=== PATIENT | male | born 1930 | race African-American/Black ===

== ENCOUNTER 2019-01-30 12:06 | Inpatient (IN) ==
[2019-01-30] MEDS ORDERED: NARCAN IV ONE (12:25)
--- NOTE | 2019-01-30 12:35 | PROVIDER DOCUMENTATION ---
This chart was entered by Zenia Smith Scribe, acting as scribe for Carlos Aguero CRNP. HPI-General Adult - General Stated Complaint: AMS Time Seen by Provider: 01/30/19 12:12 Source: family, EMS Allergies/Adverse Reactions: Patient Allergies Allergy/AdvReac Type Severity Reaction Status Date / Time No Known Allergies Allergy Verified 02/06/18 21:04 Home Medications: Home Medication List Medication Instructions Recorded Confirmed Last Taken Type Amlodipine [Norvasc] 5 mg PO DAILY 08/30/12 02/06/18 03/05/17 07:14 History Folic Acid 1 mg PO DAILY 08/30/12 02/06/18 03/05/17 07:14 History Memantine HCl [Namenda] 10 mg PO BID 08/30/12 02/06/18 03/04/17 21:00 History Quetiapine [Seroquel] 25 mg PO DAILY 08/30/12 02/06/18 03/05/17 07:14 History Aspirin EC 81 mg PO DAILY #0 tablet 09/20/14 02/06/18 02/23/17 09:00 Rx Clopidogrel Bisulfate [Plavix] 75 mg PO DAILY 02/02/15 02/06/18 02/23/17 09:00 History Cyanocobalamin [Vitamin B-12] 500 microgm PO DAILY 03/03/17 02/06/18 03/05/17 07:14 History Atorvastatin Calcium [Lipitor] 20 mg PO QHS 02/06/18 02/06/18 Unknown History Donepezil HCl 10 mg PO BID 02/06/18 02/06/18 Unknown History Glucosamine/D3/Boswellia Robina 1 each PO DAILY 02/06/18 02/06/18 Unknown History [Osteo Bi-Flex Tablet] Hydralazine [Apresoline] 75 mg PO Q6H 02/06/18 02/06/18 Unknown History LISINOpril [Prinivil] 20 mg PO DAILY 02/06/18 02/06/18 Unknown History Metoprolol Succinate E.r. [Toprol 25 mg PO DAILY 02/06/18 02/06/18 Unknown History Xl] Pantoprazole Sodium 40 mg PO DAILY@0700 02/06/18 02/06/18 Unknown History Levofloxacin [Levaquin] 500 mg PO DAILY #5 tab 02/11/18 Unknown Rx - History of Present Illness -Gen Adult Nature of Presenting Problems: 88 y/o male presents to ED unable to speak onset just prior to arrival. Family of pt reports he was A&Ox3 this morning and talking to them. Pt has hx CVA, Alzheimer's, and cardiac issues. EMS states he was unresponsive en route to ED. Pt is alert, but answers questions inappropriately and does not follow commands. Location of Pain/Injury: reports: none Pain Radiation: reports: no radiation Quality of Pain: reports: none Severity: reports: moderate Onset/Duration: reports: just prior to arrival Timing: reports: still present Context/Activities at Onset: reports: none Modifying Factors: improves with: nothing Associated Symptoms: reports: other (AMS; unable to speak) Similar Symptoms Previously?: No Recently seen or treated by another doctor?: No Review of Systems - Adult - REVIEW OF SYSTEMS - ADULT Constitutional: reports: other (AMS; unable to speak). denies: chills, fever Eyes: reports: no symptoms reported Ears, Nose, Mouth & Throat: reports: no symptoms reported Cardiovascular: denies: chest pain, palpitations Respiratory: denies: cough, shortness of breath Gastrointestinal: denies: abdominal pain, diarrhea, nausea, vomiting Genitourinary: reports: no symptoms reported Musculoskeletal: denies: back pain, joint pain Integumentary: reports: no symptoms reported Neurological: reports: other (AMS; unable to speak). denies: dizziness/vertigo, seizure Psychiatric: reports: no symptoms reported Endocrine: reports: no symptoms reported Hematologic/Lymphatic: reports: no symptoms reported Allergic/Immunologic: reports: no symptoms reported All Other Systems: Reviewed and Negative Past History - Adult - PAST MEDICAL HISTORY-ADULT Review of Records: reports: Old Records Reviewed, Nursing Assessment Review, Medications Reviewed Major Childhood Illnesses: reports: history unknown Cardiovascular: reports: CAD, HTN, hyperlipidemia, [place] Respiratory: reports: denies history Gastrointestinal: reports: denies history Obstetrical/Gynecological: reports: denies history Genitourinary: reports: cancer (bladder), other (renal cyst) Musculoskeletal: reports: denies history 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, CVA, dementia, other (Coon's palsy) Endocrine/Immune: reports: denies history Other Conditions: reports: denies history - PRIOR SURGERIES/PROCEDURES Surgical/Procedure History: reports: CABG (6 years ago), other (bladder) - IMMUNIZATION STATUS Childhood Immunizations: See Nurse Assessment Flu Vaccine: See Nurse Assessment - FAMILY HISTORY Family History: reviewed, not pertinent - SOCIAL HISTORY Smoking: quit greater than 1 year Substance Use: none/never Alcohol Use Frequency: never Living Situation: family Physical Exam-General - PHYSICAL EXAM-ADULT Initial Vital Signs Reviewed: Yes - CONSTITUTIONAL General Appearance: appears well, alert, other (altered; answers questions inappropriately; unable to follow commands; uncooperative) - EYES Eyes: PERRL/EOMI, pink conjunctivae, other (pinpoint pupils) - HEAD, EARS, NOSE, MOUTH & THROAT HENMT: normocephalic/atraumatic, moist mucous membranes, other (L periorbital swelling) - NECK Neck: non-tender, full range of motion - RESPIRATORY Respiratory: chest non-tender, lungs clear, normal breath sounds - CARDIOVASCULAR Cardiovascular: normal peripheral pulses, regular rate, rhythm - GASTROINTESTINAL (ABDOMEN) Abdominal Exam: normal bowel sounds, non tender, soft - MUSCULOSKELETAL Back Exam: normal inspection, no CVA tenderness, no vertebral tenderness Extremity: normal range of motion, non-tender, swelling (L hand) - SKIN Integumentary: normal color, warm/dry, swelling (L hand; L periorbital region) - NEUROLOGIC Neurologic: other (altered; answers questions inappropriately; unable to follow commands; uncooperative) - PSYCHIATRIC Psych/Mental Status: other (altered; answers questions inappropriately; unable to follow commands; uncooperative) Progress - PLAN OF CARE/RESULTS Progress/Plan/Lab Results: Orders Category Date Time Status FSBS [Finger Stick Blood Sugar (ED)] DIRECTED Care 01/30/19 12:19 Active Saline Loc NOW Care 01/30/19 12:19 Active CHEST-PORTABLE [RAD] Stat Exams 01/30/19 12:[address] HEAD W/O CONTRAST [CT] Stat Exams 01/30/19 12:20 Ordered BLOOD CULTURE [BLDCUL] Stat Lab 01/30/19 12:21 Uncollected CBC WITH ELECTRONIC DIFF [HEME] Stat Lab 01/30/19 12:19 Uncollected CK PROFILE [SP CHEM] Stat Lab 01/30/19 12:19 Uncollected COMPREHENSIVE METABOLIC PANEL [CHEM] Stat Lab 01/30/19 12:19 Uncollected LACTATE, PLASMA [CHEM] Stat Lab 01/30/19 12:21 Uncollected PRO B-NATRIURETIC PEPTIDE Stat Lab 01/30/19 12:19 Ordered PROTIME WITH INR [COAG] Stat Lab 01/30/19 12:19 Uncollected PTT [COAG] Stat Lab 01/30/19 12:19 Uncollected TROPONIN T Stat Lab 01/30/19 12:19 Uncollected URINALYSIS W/POSS RFLX CULT [URINALYSIS] Stat Lab 01/30/19 12:20 Uncollected URINE DRUG SCREEN Stat Lab 01/30/19 12:20 Uncollected Naloxone [Narcan] Med 01/30/19 12:25 Once 0.4 mg IV NOW ONE EKG [EKG] Stat Ther 01/30/19 12:19 Ordered Laboratory Tests 01/30/19 01/30/19 01/30/19 12:24 13:14 13:14 WBC 8.89 RBC 3.44 L Hgb 10.6 L Hct 33.6 L MCV 97.7 MCH 30.8 MCHC 31.5 L RDW Std Deviation 12.2 Plt Count 247 MPV 9.2 Immature Gran % (Auto) 0.0 Neut % (Auto) 76.6 H Lymph % (Auto) 17.5 L Burleigh % (Auto) 5.7 Eos % (Auto) 0.0 Baso % (Auto) 0.2 Immature Gran # (Auto) 0.00 Neut # (Auto) 6.80 H Lymph # (Auto) 1.56 Bur[place] # (Auto) 0.51 Eos # (Auto) 0.00 Baso # (Auto) 0.02 PT INR PTT (Actin FS) Specimen Type Sample Site pH pCO2 pO2 HCO3 Base Excess Oxyhemoglobin ABG O2 Sat (Calculated) ABG O2 Saturation ABG Carboxyhemoglobin ABG Methemoglobin Laci Test A-a O2 Difference Total Hemoglobin Lactate Blood Gas Modality FiO2 % Sodium Potassium Chloride Carbon Dioxide Anion Gap BUN Creatinine Estimated GFR/1.73 m2 BUN/Creatinine Ratio Glucose POC Glucose 128 H Calculated Osmolality Calcium Total Bilirubin AST ALT Alkaline Phosphatase Ammonia Creatine Kinase Troponin T Tzn-W-Rexogycyidi Pept 36577 H Total Protein Albumin Globulin Albumin/Globulin Ratio Plasma Lactate 01/30/19 01/30/19 01/30/19 13:14 13:14 13:14 WBC RBC Hgb Hct MCV MCH MCHC RDW Std Deviation Plt Count MPV Immature Gran % (Auto) Neut % (Auto) Lymph % (Auto) [place] % (Auto) Eos % (Auto) Baso % (Auto) Immature Gran # (Auto) Neut # (Auto) Lymph # (Auto) Bur[place] # (Auto) Eos # (Auto) Baso # (Auto) PT 13.6 INR 0.96 PTT (Actin FS) 28.3 Specimen Type Sample Site pH pCO2 pO2 HCO3 Base Excess Oxyhemoglobin ABG O2 Sat (Calculated) ABG O2 Saturation ABG Carboxyhemoglobin ABG Methemoglobin Laci Test A-a O2 Difference Total Hemoglobin Lactate Blood Gas Modality FiO2 % Sodium 145 Potassium 4.8 Chloride 108 H Carbon Dioxide 21 L Anion Gap 16 BUN 65 H Creatinine 3.8 H Estimated GFR/1.73 m2 18 BUN/Creatinine Ratio 17 Glucose 111 H POC Glucose Calculated Osmolality 308 Calcium 9.1 Total Bilirubin 0.42 AST 23 ALT 8 L Alkaline Phosphatase 88 Ammonia Creatine Kinase 1382 H Troponin T 0.274 H Qrk-K-Dbfyudavrfv Pept Total Protein 7.9 Albumin 3.9 Globulin 4.0 Albumin/Globulin Ratio 1.0 Plasma Lactate 01/30/19 01/30/19 01/30/19 13:14 13:14 13:24 WBC RBC Hgb Hct MCV MCH MCHC RDW Std Deviation Plt Count MPV Immature Gran % (Auto) Neut % (Auto) Lymph % (Auto) [place] % (Auto) Eos % (Auto) Baso % (Auto) Immature Gran # (Auto) Neut # (Auto) Lymph # (Auto) [place]leigh # (Auto) Eos # (Auto) Baso # (Auto) PT INR PTT (Actin FS) Specimen Type ARTERIAL Sample Site R RADIAL pH 7.38 pCO2 35 pO2 75 HCO3 21.9 Base Excess -3.9 L Oxyhemoglobin 94.6 L ABG O2 Sat (Calculated) 13.1 L ABG O2 Saturation 97.3 ABG Carboxyhemoglobin 1.70 ABG Methemoglobin 1.1 Laci Test YES A-a O2 Difference 31.0 Total Hemoglobin 9.8 L Lactate 0.80 Blood Gas Modality ROOM AIR FiO2 % 21.0 Sodium Potassium Chloride Carbon Dioxide Anion Gap BUN Creatinine Estimated GFR/1.73 m2 BUN/Creatinine Ratio Glucose POC Glucose Calculated Osmolality Calcium Total Bilirubin AST ALT Alkaline Phosphatase Ammonia 102 H Creatine Kinase Troponin T Dkw-V-Xjqxjertsju Pept Total Protein Albumin Globulin Albumin/Globulin Ratio Plasma Lactate 1.4 Discussed results and plan of care with patient family. Family agrees with plan and verbalizes understanding. Result Diagrams: 01/30/19 13:14 01/30/19 13:14 - EKG 1 Time of EKG reading by physician:: 12:27 EKG Read and Signed by:: Mitul Jacobson EKG Interpretation (*Must complete 3 of following elements*): Normal (B orderline) Rate: 88 Rhythm: Sinus with 1st degree AV block with occasional PVCs [place]: normal QRS: LVH (minimal voltage criteria), PVC's [place] Interval: normal ST Wave: non-specific ST changes - XRAY 1 XRAY Study: Chest ([facility] - [address] [facility], [address], [place] [address] [facility] - [address] [place] [address] Department of Imaging Patient: MEDINA DIAZ SR Date: 01/30/19MR#: [id number] : 1930ADM Status: REG [facility]#: [id number] Age/Sex: 88/MRoom/Bed: Loc: ED Ordering Physician: Carlos Aguero Family Physician: Danielle Rico Reason for Procedure: ams Signed CHEST-PORTABLE - 01/30/2019 INDICATION: ams COMPARISON: 01/29/2018 FINDINGS: Stable sternotomy wires. Stable severely low lung volumes. No infiltrates or edema. Heart size is normal. No large pleural effusion. IMPRESSION: Severely low lung volumes. No acute disease. Electronically signed by Trever Armstrong 01/30/2019 1:00 PM 01/30/19 1300 Interpreting Physician: Trever Armstrong MD Dictated Date/Time: 01/30/19 0342 cc: Carlos Aguero; Danielle Rico) Impression: See EMR Report ([facility] - [address], [address], [place] [address] [address] Department of Imaging Patient: HATTIE DIAZ SRERADM Date: 01/30/19MR#: [id number] : 1930ADM Status: REG ERAcct#: [id number] Age/Sex: 88/MRoom/Bed: Loc: ED Ordering Physician: Carlos Aguero Family Physician: Danielle Rico Reason for Procedure: ams Signed CHEST-PORTABLE - 01/30/2019 INDICATION: ams COMPARISON: 01/29/2018 FINDINGS: Stable sternotomy wires. Stable severely low lung volumes. No infiltrates or edema. Heart size is normal. No large pleural e ffusion. IMPRESSION: Severely low lung volumes. No acute disease. Electronically signed by Trever Armstrong 01/30/2019 1:00 PM 01/30/19 1300 Interpreting Physician: Trever Armstrong MD Dictated Date/Time: 01/30/19 1259 cc: Carlos Aguero; Danielle Rico) XRAY Interpretation: See note - CT/MRI 1 CT Study: Head Impression: See EMR Report ([facility] - [address], [address], [place] [address] [facility] - [facility] [place] [address] Department of Imaging Patient: MEDINA DIAZ SR Date: 01/30/19MR#: [id number] : 1930ADM Status: REG ERAcct#: [id number] Age/Sex: 88/MRoom/Bed: Loc: ED Ordering Physician: Carlos Aguero Family Physician: Danielle Rico Reason for Procedure: ams Signed CT HEAD W/O CONTRAST - 01/30/2019 INDICATION: ams COMPARISON: 01/29/2018 FINDINGS: Stable advanced cerebral atrophy. 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 Stable old lacunar in the right thalamus. No skull fracture. Trace nonspecific fluid in the floor the maxillary sinuses bilaterally. Mastoids and middle ears are clear. IMPRESSION: Advanced chronic ischemic changes. No acute process. This exam was performed using automated exposure control, adjustment of mA or kV according to patient size, and/or use of iterative reconstruction technique Electronically signed by Trever Armsrtong 01/30/2019 12:57 PM 01/30/19 1257 Interpreting Physician: Trever Armstrong MD Dictated Date/Time: 01/30/19 1255 cc: Carlos Aguero; Danielle Rico) - CONSULTS/PCP/HOSPITALIST Notification #1 *Consult/PCP/Hospitalist*: Summer for Dr. Barragan Time Discussed: 14:14 Reason/Comments: Admission Consult Disposition: Will see in ED, Admit Departure - Departure Date of Disposition Decision: 01/30/19 Time of Disposition Decision: 13:56 DIAGNOSIS: Hyperglycemia, Hepatic encephalopathy Altered mental status Qualifiers: Altered mental status type: unspecified Qualified Code(s): R41.82 - Altered mental status, unspecified Acute on chronic renal failure Qualifiers: Acute renal failure type: unspecified Chronic kidney disease stage: unspecified stage Qualified Code(s): N17.9 - Acute kidney failure, unspecified; N18.9 - Chronic kidney disease, unspecified CHF exacerbation Qualifiers: Heart failure type: unspecified Qualified Code(s): I50.9 - Heart failure, unspecified Disposition: ADMITTED INPATIENT 09 Certified Medical Emergency: Emergent Condition: Serious Referrals and Follow-Ups: Dnaielle Rico [Primary Care Provider] - - Critical Care Note This patient required my direct & personal management of CC.: Yes Total Time (mins): 45 Critical Care Statement: This patient required my direct personal management to treat or rule out processes, the absence of which, could potentiallly result in sudden, clinically significant life or limb threatening deterioration. Attestation - Physician/ DHAVAL Attestation Patient care was provided by Advanced Practice Provider:: Yes Advanced Practice Provider:: Carlos Aguero Advanced Practice Provider documentation review:: The Mid-level provider documentation, treatment plan and medical decision making was reviewed by the physician who agrees with all treatment and medical decision making by the MLP. The physician spent face to face time with patient:: No Advanced Practice Provider documentation review:: Supervising physician onsite and consulted in the evaluation and care of this patient. The physician did not have a face to face encounter with the patient. This chart was documented by the indicated scribe, (Zenia Smith, Leana) and accurately reflects the services I performed and decisions made by me, Carlos Aguero CRNP, as attested by the provider's signature.
--- NOTE | 2019-01-30 12:59 | Diag Imaging Result Doc PS360 ---
CT HEAD W/O CONTRAST - 01/30/2019 INDICATION: ams COMPARISON: 01/29/2018 FINDINGS: Stable advanced cerebral atrophy. 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 Stable old lacunar in the right thalamus. No skull fracture. Trace nonspecific fluid in the floor the maxillary sinuses bilaterally. Mastoids and middle ears are clear. IMPRESSION: Advanced chronic ischemic changes. No acute process. This exam was performed using automated exposure control, adjustment of mA or kV according to patient size, and/or use of iterative reconstruction technique Electronically signed by Trever Armstrong 01/30/2019 12:57 PM
--- NOTE | 2019-01-30 13:02 | Diag Imaging Result Doc PS360 ---
CHEST-PORTABLE - 01/30/2019 INDICATION: ams COMPARISON: 01/29/2018 FINDINGS: Stable sternotomy wires. Stable severely low lung volumes. No infiltrates or edema. Heart size is normal. No large pleural effusion. IMPRESSION: Severely low lung volumes. No acute disease. Electronically signed by Trever Armstrong 01/30/2019 1:00 PM
[2019-01-30 13:33] LABS: ALLEN TEST YES; BE -3.9 mmoll (-3.0-3.0); BLOOD TYPE ARTERIAL; HCO3-(ACT) 21.9 mmoll (20.0-26.0); METHB 1.1 % (0.0-1.5); O2(CT) 13.1 mL/dL (15.0-23.0); O2HB 94.6 % (95.0-99.0); PCO2(98.6) 35 mmHg (35-45); PO2(98.6) 75 mmHg (60-100); SAMPLE BLOOD; SAO2 97.3 % (95.0-100.0); THB 9.8 g/dL (11.5-17.4); pH(98.6) 7.38 (7.35-7.45)
[2019-01-30 13:34] LABS: MODALITY ROOM AIR
[2019-01-30 13:41] LABS: BASO# 0.02 X1000 (0.0-0.2); BASO% 0.2 % (0.0-0.8); HEMATOCRIT 33.6 % (42.0-52.0); HEMOGLOBIN 10.6 g/dL (14.0-18.0); LYMPH# 1.56 X1000 (1.2-3.4); LYMPH% 17.5 % (20.5-51.1); MCH 30.8 PG (27-31); MCHC 31.5 g/dL (33-37); MCV 97.7 FL (81-99); MONO# 0.51 X1000 (0.11-0.59); MONO% 5.7 % (1.7-9.3); MPV 9.2 FL (7.4-10.4); NEUT% 76.6 % (42.2-75.2); PLT 247 X1000 (130-400); RBC 3.44 XMIL (4.7-6.1); RDW 12.2 % (11.5-14.5); WBC 8.89 X1000 (4.8-10.8)
[2019-01-30 13:51] LABS: ALBUMIN 3.9 g/dL (3.5-5.0); CALCIUM 9.1 mg/dL (8.8-10.2); CREATININE 3.8 mg/dL (0.7-1.2); POTASSIUM 4.8 mmol/L (3.5-5.1); TOTAL BILIRUBIN 0.42 mg/dL (0.20-1.00); TOTAL PROTEIN 7.9 g/dL (6.3-8.3)
[2019-01-30 13:58] LABS: INR 0.96; PROTIME 13.6 Seconds (11.0-16.0)
[2019-01-30 13:59] LABS: PTT 28.3 Seconds (22.3-41.8)
[2019-01-30] MEDS ORDERED: LACTULOSE MISC ONE (14:00)
--- NOTE | 2019-01-30 14:11 | EKG Report ---
Test Performed on : 01/30/2019 12:27:45 PM Test Reason : AMS Blood Pressure : / mmHG Vent. Rate : 088 BPM Atrial Rate : 088 BPM P-R Int : 220 ms QRS Dur : 102 ms QT Int : 394 ms P-R-T Axes : 038 -11 067 degrees QTc Int : 476 ms Sinus rhythm. with 1st degree AV block. with occasional premature ventricular complexes. Minimal voltage criteria for LVH, may be normal variant Borderline ECG When compared with ECG of 06-FEB-2018 20:51, premature ventricular complexes. are now present DE interval has increased Unconfirmed Result
[2019-01-30 14:28] LABS: CK INDEX 1.6 (0.0-2.5); CK-MB 22.57 ng/mL (0.0-5.0)
[2019-01-30 14:47] LABS: URINE SOURCE CATH
[2019-01-30 14:58] LABS: BILIRUBIN URINE NEGATIVE (NEGATIVE); BLOOD URINE MODERATE (NEGATIVE); COLOR YELLOW; GLUCOSE URINE NEGATIVE (NEGATIVE); KETONE URINE NEGATIVE (NEGATIVE); LEUKOCYTES URINE NEGATIVE (NEGATIVE); NITRITE URINE NEGATIVE (NEGATIVE); PROTEIN URINE 300 mg/dL (NEGATIVE); SP GRAVITY URINE 1.013; TURBIDITY URINE CLEAR (CLEAR); UROBILINOGEN URINE NORMAL (NORMAL)
[2019-01-30] MEDS ORDERED: NS 1,000 ML IV SCH (15:00)
[2019-01-30 15:02] LABS: UR EPITHELIAL CELLS <10 /HPF (<10); URINE BACTERIA NEGATIVE /HPF; URINE WBC <10 /HPF (<10)
[2019-01-30 15:06] LABS: UR AMPHETAMINES QUAL NONE DETECTED (NONE DETECT); UR BARBITUATES QUAL NONE DETECTED (NONE DETECT); UR BENZODIAZEPIN QUAL NONE DETECTED (NONE DETECT); UR CANNABINOIDS QUAL NONE DETECTED (NONE DETECT); UR COCAINE QUAL NONE DETECTED (NONE DETECT); UR METHADONE QUAL NONE DETECTED (NONE DETECT); UR OPIATES QUAL NONE DETECTED (NONE DETECT); UR OXYCODONE QUAL NONE DETECTED (NONE DETECT); UR PCP QUAL NONE DETECTED (NONE DETECT)
[2019-01-30 15:12] LABS: URINE CASTS NONE SEEN; URINE CRYSTALS NONE SEEN; URINE SMALL ROUND CELLS NONE SEEN; URINE YEAST PRESENT
[2019-01-30 15:23] LABS: HEMOGLOBIN A1C 4.7 % (4.8-6.0)
[2019-01-30] MEDS ORDERED: LABETALOL IV PRN (15:33)
--- NOTE | 2019-01-30 15:44 | Diag Imaging Result Doc PS360 ---
ABDOMEN FLAT/UPRIGHT - 01/30/2019 INDICATION: constipation COMPARISON: 09/19/2014 FINDINGS: There is moderate diffuse constipation. There is severe rectal stool impaction with a stool ball measuring 9 x 12 cm. No bowel obstruction or free air. IMPRESSION: Constipation. Severe rectal stool impaction. Electronically signed by Trever Armstrong 01/30/2019 3:42 PM
[2019-01-30] MEDS ORDERED: ZOFRAN IV PRN (15:55)
[2019-01-30] MEDS ORDERED: LASIX IV ONE (16:05)
[2019-01-30] MEDS: NEXIUM IV SCH (17:10)
[2019-01-30] MEDS: SODIUM CHLORIDE 0.9% INJ SCH (17:13)
--- NOTE | 2019-01-30 18:06 | HISTORY AND PHYSICAL ---
FAMILY PHYSICIAN: Danielle Rico MD CHIEF COMPLAINT: Altered mental status. HISTORY OF PRESENT ILLNESS: This is an 88-year-old male, who presents to the ED today. Family states that they heard him talking this morning about 5:30 in the morning, and at about 8:30 when they went in his room to check on him, he was not talking. They noted his face and his arm were swollen, so they decided to bring him to the ER at that time. The patient has a history of a CVA, and Alzheimer's disease. He also has coronary artery disease and aortic stenosis. 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 He has also had a history of bladder cancer. The patient presents to the ER today with very altered mental status. He is only able to respond to stimuli. He does have significant periorbital edema. There are also several little enlarged areas on the frontal lobe of his head and on the temporal lobe that seem to be under the skin, just small pockets of some type of fluid collection. Family states that he has been having adequate urine output. The daughter stated that she thought he may have been a little constipated yesterday, so she did give him MiraLAX, and he did have a bowel movement. The family states that most the time he is very active. He still knows who everyone he is. He is wheelchair bound, but he is able to stand and take maybe 1 or 2 steps. He does have a small area on the left hip that is noted to be from a blister that has popped. When turning the patient over and looking at this blister, it is red, it has a very small area of yellow to it, and there does seem to be another new area where a blister has popped, and there are several other blisters below that. Family states that is all new. The patient does have a Vasquez catheter in the bladder at present time. Urine output is clear. It is minimal, though. The patient does not appear to have any edema to the lower extremities, mostly just upper extremities and the periorbital space and in the hip region. The patient denies any chest pain at this present time. He denies any dizziness. Family states he has not had any fevers or chills or nausea or vomiting. They have not noticed any blood in his stool or his urine. The patient does live at home with his daughter. Upon arrival to the ER, the patient is noted to have a slightly decreased hemoglobin of 10.6 and decreased hematocrit at 33.6. His BUN is 65, and his creatinine is 3.8, his GFR is 18. His ammonia level is 102. His creatine kinase is 1382, his CK-MB is 22.57, his troponin is 0.274. His proBNP is 22,156. His urine creatinine is 53.9. Urine toxicology is negative. Abdominal x- ray shows constipation with severe rectal stone impaction. The CT shows advanced chronic ischemic changes. Chest x-ray shows severely low lung volumes and no acute disease. PAST MEDICAL HISTORY: 1. Right thalamus infarct. 2. Carotid artery disease status post endarterectomy. 3. Coronary artery disease. 4. Generalized or focal seizures or TIAs. 5. Hypertension. 6. Hyperlipidemia. 7. Alzheimer dementia. 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 9. Kidney stones. 10. Bladder cancer. Seen by Dr. Romero and was diagnosed in 2014. PAST SURGICAL HISTORY: Right carotid endarterectomy, coronary artery bypass graft in 2008, 3- vessel. FAMILY HISTORY: Mother from diabetes. A sister from kidney failure. SOCIAL HISTORY: The patient lives with his daughter. He is unable to walk. He is able to stand and take a couple of steps with assistance and get into a wheelchair. He quit smoking greater than 40 years ago. He does not drink any alcohol and does not do any illicit drugs. ALLERGIES: No known drug allergies. HOME MEDICATIONS: Norvasc 5 mg p.o. daily. Aspirin 81 mg p.o. daily. Atorvastatin 20 mg p.o. at bedtime. Plavix 75 mg p.o. daily. Vitamin B12 of 500 mcg p.o. daily. Donepezil 10 mg p.o. b.i.d. Folic acid 1 mg p.o. daily. Osteo Bi-Flex 1 p.o. daily. Apresoline 75 mg p.o. q.6 h. Namenda 10 mg p.o. b.i.d. Metoprolol 25 mg p.o. daily. Pantoprazole 40 mg p.o. daily. Seroquel 25 mg p.o. daily. REVIEW OF SYSTEMS: Unable to obtain from the patient. See HPI. PHYSICAL EXAMINATION: VITAL SIGNS: Temperature 98.9 degrees, pulse rate 85, respiratory rate 18, blood pressure 180/90, O2 saturation 97% on room air. HEIGHT/WEIGHT: Height 5 feet 11 inches, weight 150 pounds. GENERAL: This is an 88-year-old male, who is lying in the ER stretcher. He is in no acute distress at the present time. He only responds to painful stimuli. HEENT: Head is atraumatic and normocephalic. There are several pockets to the frontal lobe of the head with some type of fluid underneath the skin. There are 2 that are right above the frontal vein that seem to be under the skin. There is also one on the back of the temporal lobe of the head. This seems to be all fluid collection under the skin of some sort. Mucous membranes are moist. NECK: Supple with no lymphadenopathy. Trachea is midline. No JVD noted. CARDIOVASCULAR: Regular rate and rhythm. The patient does have a notable murmur to the left upper sternal border and that is heard throughout. He does not have any gallops or rubs, S1, S2 noted. RESPIRATIONS: Lungs sounds are clear with equal chest excursion. Respirations are nonlabored with no accessory muscle usage. GASTROINTESTINAL: Abdomen is soft. It is tender to palpation. It is nondistended with bowel sounds present times 4. NEUROLOGIC: Patient does not follow commands. He only will say something upon stimulation. The patient does not appear to be oriented. When I asked him if he would open his eyes, the patient stated he would not do that. I am unable to open his eyes and assess the because he will not let me and of the excess fluid around the periorbital of the ey. The patient did not seem to know who anybody was that was in the room. When I asked him if he would squeeze my hands, he would not attempt to try to squeeze my hands. He just withdrew from pain. MUSCULOSKELETAL: Full distal strength noted. Patient was able to move all extremities to painful stimuli. No deformities. EXTREMITIES: There is no clubbing. There is edema noted to the periorbital space and the arms and the hip area. There is edema noted to the legs. DP and PT pulses are present. SKIN: Warm, dry. There are 3 areas noted to the left hip. These appear to be from a blister that has burst, one area that the family has been treating at home. There is another area that has actual intact blisters. There is no diaphoresis noted. ASSESSMENT AND PLAN: 1. Hepatic encephalopathy. I will admit this patient to the CIC unit. We are going to give him lactulose every 6 hours. We may have to place NG tube to give this lactulose. Patient may not be able to take p.o. and unable to give rectally because of impaction. We will recheck an ammonia level in the morning. Dr. Ball is consulted. 2. Acute kidney injury. The patient does have some chronic kidney disease, but his creatinine is much more elevated today than it usually is. We are going to consult Dr. Schwartz to see him. 3. Coronary artery disease and aortic stenosis. We are going to order an echocardiogram on this patient. We are going to have Cardiology see this patient. The patient does have a notable murmur. 4. Congestive heart failure. The patient's proBNP is extremely elevated at 22,000. The patient does have notable edema around the eye area, legs, the hip area, and the arms. We are going to give him 1 dose of Lasix 60 mg IV to see if this will help with this edema. 5. Elevated cardiac enzymes. We are going to trend these cardiac enzymes. We have got Cardiology involved on this patient. We are going to admit this patient to the CIC unit. 6. Alzheimer dementia. Once his home medication reconciliation has been performed and the patient is able to take p.o. medications, we will restart his Alzheimer medication or give them via NG tube if he requires a tube for medication administration. 7. Altered mental status. This is likely due to his hepatic encephalopathy. Hopefully once that resolves and we get the ammonia level to come down, this will get better. We are admitting this patient to the CIC unit. We have consulted Dr. Flanagan for Cardiology for his elevated CK and troponins and his elevated proBNP. We have also consulted Dr. Schwartz for his elevated creatinine level. We are going to give this patient a one-time dose of Lasix to see if we can get some of the fluid off of him. I have also consulted Dr. Ball for his elevated ammonia levels and his hepatic encephalopathy. I have ordered an ultrasound of the abdomen. His abdominal x-ray did show some constipation. We are giving him lactulose. This should help with the constipation and this will help the ammonia level, also. We will recheck labs in the morning. Dictated by FREDERICK Gutierrez for Laurie Jaeger MD cc: Laurie Jaeger MD I performed a face to face encounter on the patient. I reviewed all labs and imaging on the patient. I agree with the H&P as dictated. [facility]
[2019-01-30] MEDS ORDERED: ASPIRIN EC PO ONE (18:52)
--- NOTE | 2019-01-30 18:56 | Diag Imaging Result Doc PS360 ---
US ABDOMEN-COMPLETE - 01/30/2019 INDICATION: elevated ammonia level COMPARISON: None FINDINGS: The patient was extremely combative. The exam is nondiagnostic. IMPRESSION: Nondiagnostic exam. Electronically signed by Trever Armstrong 01/30/2019 6:53 PM
--- NOTE | 2019-01-30 20:00 | GASTROENTEROLOGY CONSULTATION ---
DATE: 01/30/2019 REQUESTING PHYSICIAN: Laurie Jaeger MD REASON FOR CONSULTATION: Fecal impaction. Elevated ammonia. HISTORY OF PRESENT ILLNESS: Mr. Veloz is an 88-year-old male admitted on 01/29/2019 for altered mental status. I spoke to the patient's daughter at bedside. The patient has a known history of CVA, Alzheimer's, and cardiac issues. He was unresponsive en route to the emergency department. All history obtained from the records and from the patient's family at bedside. On arrival to the ER, the patient had labs drawn which showed evidence of anemia and elevated ammonia of 102. His liver enzymes were normal. His toxicology screen was also negative. His imaging in the form of abdominal x-ray showed moderate diffuse constipation and severe rectal stool impaction with stool ball measuring 9 x 12 cm. No bowel obstruction or free air noted. He also had a chest x-ray which showed severely low lung volumes with no acute disease and head CT was showing advanced chronic ischemic changes and no acute process. Gastroenterology consulted for management of constipation and elevated ammonia. PAST MEDICAL HISTORY: Carotid artery disease status post endarterectomy, right thalamus infarct, coronary artery disease. Generalized seizures history and focal seizure history. Hypertension, hyperlipidemia, Alzheimer's dementia, history of Coon's palsy resulting in right eyelid droop. PAST SURGICAL HISTORY: Right endarterectomy, coronary artery bypass in 2008. SOCIAL HISTORY: Quit smoking 4 years ago. No history of alcohol or illicit drug abuse. ALLERGIES: No known drug allergies. MEDICATIONS: In the hospital include: Lasix. Dulcolax 10 mg per rectal at bedtime. Labetalol. Lactulose 30 mL q.8 hours. Zofran 4 mg IV q.6 hours. Narcan given 1 dose. REVIEW OF SYSTEMS: Could not be obtained. The patient is drowsy. PHYSICAL EXAMINATION: Vital Signs: Temperature 98.9, pulse of 81, respiratory rate 18, blood pressure 170/96, saturating 97% on room air. Body weight of 150 pounds, BMI 20.9 kg. General: Thinly built, lying in bed, in no acute distress. HEENT: Positive pallor. No icterus. Neck: Supple. Abdomen: Soft, nondistended. No guarding or rebound. Extremities: No cyanosis or clubbing. Neurologic: He is very drowsy. He moves his arms and legs, but he is nonverbal and does not answer any questions. LABORATORY DATA: His hemoglobin and hematocrit are 10.7 and 33.6, white count of 8.89, platelet count of 247,000, INR of 0.96, PT of 13.6, PTT of 28.3. ABG showing pH of 7.38, pCO2 of 35, PO2 of 75. This is on room air. Sodium 140, potassium 4.2, chloride 100, bicarb 20, anion gap of 16, BUN of 65, creatinine 3.8, glucose of 111, calcium 9.1, total bilirubin is 0.42, AST 23, ALT 8, alkaline phosphatase 88, total protein 102, albumin 3.9, total protein 7.9, creatine kinase is 132. CK/MB 22.5. Troponin is 0.274. ProBNP is 22,156. Urinalysis showing positive protein, moderate blood, 10-20 red cells. Toxicology screen is negative. Blood cultures x2 have been drawn. They are currently pending. An abdominal x-ray showing evidence of moderate diffuse constipation and severe rectal fecal impaction with stool ball measuring 9 x 12 cm. IMPRESSION AND PLAN: 1. Constipation. 2. Fecal impaction. 3. Elevated ammonia. 4. Anemia. 5. Renal insufficiency with elevated BUN and creatinine. 6. Elevated proBNP and slightly elevated troponins. 7. Normal liver enzymes. RECOMMENDATIONS: 1. We will continue with aggressive bowel regimen. We will start on soapsuds enemas twice daily. We will continue on lactulose every 8 hours. Continue on Dulcolax once daily. He needs to be hydrated. He needs to be on some IV fluids. This is managed by primary team. We will check abdominal ultrasound as well as elevated ammonia. His liver enzymes are normal. Lactulose will help ammonia as well. 2. We will start him on GI prophylaxis with Nexium. 3. We will continue to watch his blood counts. He is anemic. 4. Altered mental status. This is being worked up by the primary care team. 5. The patient does have a high risk of bleeding, and patient is on aspirin and Plavix at home. 6. History of baseline dementia. Aware. 7. Acute renal failure and chronic kidney disease. This is being managed by primary team. 8. The above plans discussed with the patient and family at bedside and all questions were answered via the patient's nurse. All questions answered. Please call us with any further questions. cc: Jeremias Ball MD Zz Unknown Julian Ames MD MTDD
--- NOTE | 2019-01-30 21:45 | Diag Imaging Result Doc PS360 ---
CHEST-PORTABLE - 01/30/2019 INDICATION: ng tube placement COMPARISON: 01/30/2019 FINDINGS: There is a nasogastric tube with the tip in the left lower quadrant in good position. IMPRESSION: Nasogastric tube in good position in the stomach. Electronically signed by Trever Armstrong 01/30/2019 9:42 PM
[2019-01-30 21:59] LABS: CK INDEX 1.6 (0.0-2.5); CK-MB 21.38 ng/mL (0.0-5.0)
[2019-01-30] MEDS: COREG PO SCH (22:16)
[2019-01-30] MEDS: LACTULOSE PO SCH (22:16)
[2019-01-31] MEDS: DULCOLAX PR SCH ×3 (00:47→22:45)
[2019-01-31] MEDS: LACTULOSE PO SCH ×3 (05:34→22:41)
[2019-01-31 06:41] LABS: HEMATOCRIT 33.5 % (42.0-52.0); HEMOGLOBIN 10.4 g/dL (14.0-18.0); MCV 99.7 FL (81-99); MPV 9.6 FL (7.4-10.4); RBC 3.36 XMIL (4.7-6.1); RDW 12.3 % (11.5-14.5); WBC 8.07 X1000 (4.8-10.8)
[2019-01-31] MEDS ORDERED: NS 1,000 ML IV SCH (07:15)
[2019-01-31 07:17] LABS: ALBUMIN 3.6 g/dL (3.5-5.0); CALCIUM 8.9 mg/dL (8.8-10.2); CREATININE 3.9 mg/dL (0.7-1.2); PHOSPHORUS 5.4 mg/dL (2.7-4.5)
--- NOTE | 2019-01-31 07:28 | EKG Report ---
Test Performed on : 01/31/2019 06:56:43 AM Test Reason : elevated troponin Blood Pressure : / mmHG Vent. Rate : 079 BPM Atrial Rate : 079 BPM P-R Int : 184 ms QRS Dur : 098 ms QT Int : 388 ms P-R-T Axes : 032 -17 098 degrees QTc Int : 444 ms Normal sinus rhythm. Minimal voltage criteria for LVH, may be normal variant T wave abnormality, consider anterolateral ischemia Abnormal ECG When compared with ECG of 30-JAN-2019 12:27, (Unconfirmed) premature ventricular complexes. are no longer present MN interval has decreased T wave inversion now evident in Anterior leads Confirmed by Poncho Almonte MD ([id number]) on 02/02/2019 8:50:58 AM
[2019-01-31 07:50] LABS: CK INDEX 1.5 (0.0-2.5); CK-MB 14.51 ng/mL (0.0-5.0)
[2019-01-31] MEDS: COREG PO SCH ×2 (08:12→22:41)
[2019-01-31] MEDS: D5W 1,000 ML IV SCH ×2 (08:12→23:40)
[2019-01-31] MEDS: ASPIRIN EC PO SCH (08:12)
--- NOTE | 2019-01-31 08:47 | Diag Imaging Result Doc PS360 ---
EXAM: FLAT/UPRIGHT ABD/1 VIEW CHEST 01/31/2019 HISTORY: constipation/dyspnea TECHNIQUE: AP portable flat and upright abdomen with AP chest at 0824 COMMENT: There is colonic and small bowel gas with gas in the rectum. There is extensive calcification of the aorta and iliac arteries. There is no evidence of organomegaly or mass. Compared to 01/30/2019 the fecal impaction in the rectum has improved. There is somewhat more small bowel gas this time. The inspiration is suboptimal. The appearance the chest has not changed appreciably however since 01/30/2019. IMPRESSION: Improved constipation. The possibility of ileus cannot be excluded. Electronically signed by Som Lopez 01/31/2019 8:45 AM
--- NOTE | 2019-01-31 09:48 | ECHO REPORT ---
ORDER DATE: 01/30/2019 MEASUREMENTS: Septal thickness 1.5, left ventricular internal diameter in diastole 4.8, aortic root 4.2, left atrium 4.5. SUMMARY: 1. Technically difficult study due to limited acoustic window quality. 2. Fibrocalcific changes of the aortic valve demonstrated with markedly reduced aortic valve leaflet mobility evident. Peak gradient across the aortic valve is 44 mmHg, with a mean gradient of 28 mmHg. Calculated aortic valve area by Doppler is 0.8 cm2, suggesting severe aortic stenosis. There is mild aortic regurgitation. Mitral and tricuspid valves are without evidence of structural abnormality, while pulmonic valve is not well demonstrated. There is very mild mitral regurgitation and [id number] pulmonic insufficiency. The aortic root is mildly enlarged. 3. Normal left ventricular chamber size with moderate concentric left ventricular hypertrophy is demonstrated. Estimated left ventricular ejection fraction is approximately 40% in the setting of global hypokinesis. Left atrium is moderately enlarged. Right atrium and right ventricle are normal in size with grossly preserved right ventricular systolic function. 4. No pericardial effusion. 5. Inferior vena cava not well demonstrated. cc: MD Laurie Hdez MD [facility]
[2019-01-31] MEDS: APRESOLINE PO SCH ×3 (10:22→18:01)
--- NOTE | 2019-01-31 10:32 | CARDIOLOGY CONSULTATION ---
DATE: 01/31/2019 HISTORY OF PRESENT ILLNESS: An 88-year-old gentleman was brought to the emergency room by family, and admitted. He had altered mental status. His arm was swollen as well. The patient has a history of CVA, coronary artery bypass grafting, renal insufficiency, and aortic stenosis. He has a history of seizure disorders as well. History was obtained from the chart and discussing with the family. The patient had not complained of any chest pain. He is normally bedbound, and with family assistance, he is on the wheelchair as well. Family also has noted a bedsore on the left hip. They also noted some periorbital edema. He has days when he eats well. There are other days he has not eaten well, and he has not had adequate urine output, and they say they noted him to be more constipated as well. In the emergency room, the patient was noted to have a hemoglobin of 10.6, hematocrit 33.6. BUN 65, creatinine 3.8. Ammonia level was 102. Creatine kinase 1382, with a CK-MB of 22.57. Troponin abnormal at 0.274. ProBNP 22,156. Urine toxicology was negative. Abdominal x-ray showed severe rectal impaction. CT scan of the head shows chronic ischemic changes. Chest x-ray shows low lung volumes. PAST MEDICAL HISTORY: 1. Cardiomyopathy. Ejection fraction of 40%. 2. Aortic stenosis. 3. Malignant neoplasm of the bladder, on BCG therapy. 4. Hypertension. 5. Episode of atrial fibrillation in 2012. 6. Coronary artery bypass grafting in 2008 with TELLO to left anterior descending artery, SVG to OM, SVG to RPDA. 7. Chronic renal insufficiency. 8. Peripheral vascular disease. Right carotid endarterectomy in 2008. 9. Alzheimer's. 10. B12 deficiency. 11. Malnutrition, protein. 12. Osteoarthritis. 13. Anemia. 14. Right thalamic infarct in the past. 15. History of Coon's palsy. 16. Renal stones. FAMILY HISTORY: Mother from diabetes. Sister has chronic kidney disease. SOCIAL HISTORY: The patient lives with his daughter. He quit smoking 40 years back. HOME MEDICATIONS: Norvasc 5, aspirin 81, atorvastatin 20, Plavix 75, B12, donepezil, folic acid, Osteo Bi-Flex, Apresoline 75 mg every 6 hours, Namenda 10 b.i.d., metoprolol 25, Protonix 40. PHYSICAL EXAMINATION: Vital Signs: On admission, his blood pressure was 180/90, and it was as high as 203/100. Neck: Jugular venous pressure could not be assessed. Heart: First and second heart sounds were heard. There was an ejection systolic murmur. Respiratory: Decreased breath sounds at the bases. There were no crepitations. Abdomen: Soft, nontender. Central Nervous System: Could not be assessed. The patient responds to stimulation. He opened his eyes. Detailed central nervous system examination not performed. DIAGNOSTIC DATA: Electrocardiogram revealed normal sinus rhythm, nonspecific ST-T changes. There were no acute ST changes to suggest ischemia or infarction. ASSESSMENT AND PLAN: 1. Mr. Julien Veloz, Sr., is an 88-year-old gentleman with history of coronary artery bypass grafting, carotid endarterectomy, cerebrovascular accident in the past, renal insufficiency, Alzheimer's dementia, who was brought to the hospital with altered mental status and swelling in his arm and periorbital region. From a cardiac standpoint, his echocardiogram revealed ejection fraction of 40% to 45% with aortic stenosis. No significant change in the ejection fraction. In the past, he had an ejection fraction of 40% in 2008, subsequently it was 55%. He has aortic stenosis, which is severe. Please see detailed echocardiogram report. The patient does not complain of chest pain. I had a detailed discussion with the patient's family. Given his current status and because he is mainly bedbound, we will treat him medically. No further intervention is planned. 2. He has acute kidney injury. Nephrology has been consulted. He has had poor oral intake. He has been getting intravenous fluids. 3. He has hepatic encephalopathy. Has an nasogastric tube, which was placed. The patient removed the nasogastric tube, and Gastroenterology has been consulted. He has significant constipation as well. 4. History of heart failure. Currently appears to be euvolemic. The proBNP is elevated at 22,000. It is multifactorial given his renal insufficiency and left ventricular dysfunction as well. 5. Dementia. Continue with his medication. 6. Hypertension. Continue with his home medications. Thank you for the consult. Will follow hospital course. cc: Dominic Granados MD
--- NOTE | 2019-01-31 14:38 | PROGRESS NOTE ---
DATE: 01/31/2019 SUBJECTIVE: The patient is sleepy. He had a bowel movement early this morning. OBJECTIVE: Vital Signs: Temperature 97.4 degrees, blood pressure 113/59, heart rate 73, respirations 17, and O2 saturation 99% on room air. Urine output 1.3 L. General: This is a chronically ill-appearing elderly male lying in bed in no acute distress. HEENT: Head normocephalic and atraumatic. Heart: S1, S2 normal. Regular rate and rhythm. Systolic ejection murmur. Lungs: Clear to auscultation bilaterally. No wheezing. No rales. No rhonchi. Abdomen: Soft, nontender, and nondistended. Extremities: Trace pedal edema bilaterally. Neurologic: The patient is oriented to person and place. He is able to move all 4 extremities. LABORATORY: White blood cell count 8, hemoglobin 10, hematocrit 33, platelets 221,000. Sodium 150, potassium 5, chloride 111 CO2 21, BUN 71, creatinine 3.9, glucose 107, phosphorus 5.4, CK 981, and troponin 0.39. Abdominal x-ray reveals improved constipation. Ileus cannot be excluded. ASSESSMENT AND PLAN: 1. Metabolic encephalopathy. The patient has underlying dementia. His ammonia level has improved. We will monitor the patient's mental status closely. 2. Acute kidney injury on chronic kidney disease. The patient has been started on IV fluids. An abdominal ultrasound is currently pending. Nephrology has also been consulted. 3. Elevated troponin. The patient denied having any chest pain. His EKGs did not show any evidence of ischemia. Cardiology is following. 4. Hyperammonemia. Improved. The patient is currently on lactulose. GI is following. 5. Severe aortic stenosis. Aware. 6. Coronary artery disease status post coronary artery bypass graft. Continue on the current cardiac medications. 7. Hypernatremia. The patient's IV fluids have been switched to D5W. We will monitor the sodium closely. 8. Dementia. Continue on Namenda. 9. Severe constipation. Continue with the laxative regimen as directed by GI. 10. Deep vein thrombosis prophylaxis. We will start the patient on heparin. cc: Laurie Jaeger MD [facility]
[2019-01-31 15:55] LABS: CK INDEX 1.3 (0.0-2.5); CK-MB 10.08 ng/mL (0.0-5.0)
--- NOTE | 2019-01-31 16:18 | CONSULTATION ---
DATE OF CONSULTATION: 01/31/2019 REASON FOR ADMISSION: Altered mental status. CONSULTING PHYSICIAN: FREDERICK Gutierrez, for Dr. Laurie Jaeger. REASON FOR CONSULT: Acute kidney injury. HISTORY OF PRESENT ILLNESS: Mr. Veloz is an 88-year-old male who resides with his daughter, who is the primary caregiver. Family states that they heard him talking about 5:30 to 8:30 in the morning yesterday morning. When they went in to check on him, he was unresponsive. 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 Family was unable to arouse him. He was brought to [facility] Emergency Department. They state that he has had adequate intake, adequate urine output, though at times he may use the urinal and other times he is incontinent into an adult diaper. They state that he is able to stand and transfer from wheelchair to bed or to another chair. Upon arrival in the emergency room, he was found to have a BUN of 65 and a creatinine of 3.8. His ammonia level was 102, CPK of 1,382 with an MB of 22.57, positive troponin. His abdominal x-ray showed constipation with severe rectal stone impaction. CT shows advanced chronic ischemic changes, nothing acute. Hemoglobin of 10.6. The patient does have a small, soft-appearing hematoma to the left crown area on the right. Some swelling noted to the left facial area and left lower extremity. He does open his eyes upon command, but will not allow you to assess. Family states he has not had any nausea, vomiting. He is positive for constipation, though he did have a bowel movement yesterday. No fever or chills. No complaints of chest pain, increased work of breathing. No complaints of cough. No recent fever or chills. PAST MEDICAL HISTORY: Positive for chronic kidney disease. Noted to have a baseline creatinine of 2.9 approximately 1 year ago with appearance of elevation last urine comparison to the year before. He has right thalamus infarct history, carotid artery disease status post endarterectomy, coronary artery disease, general focal seizures or TIAs in the past, hypertension, hyperlipidemia, Alzheimer's/dementia, history of Coon's palsy and right eyelid droop, history of nephrolithiasis, history of bladder cancer seen by Dr. Romero, diagnosis in 2014. PAST SURGICAL HISTORY: Right carotid endarterectomy, coronary artery bypass graft 2009 which was a three-vessel. FAMILY HISTORY: Mother from diabetes. A sister from kidney failure. SOCIAL HISTORY: He lives with his daughter. He has family who are attentive to his care. He is able to stand and transfer. He quit smoking greater than 40 years ago. Does not drink any alcohol. No illicit drug use noted. CURRENT ALLERGIES: Listed as no known drug allergies. HOME MEDICATIONS: Have been reviewed. Norvasc, aspirin, atorvastatin, Plavix, vitamin B12, donepezil, folic acid, Osteo Bi-Flex, Apresoline, Namenda, metoprolol, pantoprazole, and Seroquel. REVIEW OF SYSTEMS: Unable to obtain per patient. Most obtained from the daughter who is at the bedside and is his caregiver. VITAL SIGNS: Last temperature 98 degrees, blood pressure 148/73, heart rate 76, respirations 18. He is on room air. Last recorded saturation 95%. The patient has had 0 recorded in. He has had 1,395 out to Vasquez catheter. LABS: Sodium 150, potassium 5, chloride 111, CO2 21, BUN 71, creatinine 3.9, glucose is 107, anion gap is recorded at 18, calcium 8.9, phosphorus 5.4, albumin of 3.6. Troponins continue to elevate 0.399. He has an ammonia level of 48. White count 8.07, hemoglobin 10.4, hematocrit 33.5, with a platelet count of 221,000. PHYSICAL EXAMINATION: General: This is an 88-year-old male resting quietly in bed. He appears in no acute distress, though chronically ill. Skin: Warm and dry. HEENT: Normocephalic. He does have a soft protuberant area to his left frontal scalp. He has a back temporal lobe slight elevation, nontender. He has SALUD. Arcus senilis is present. Mucous membranes are dry. Neck: Supple. Trachea midline. No evidence of JVD. Cardiovascular: Regular rate and rhythm. He has a systolic murmur. Lungs: Clear to auscultation bilaterally. Equal excursion. On O2. Abdomen: Soft, nontender. Positive bowel sounds. Genitourinary: Not inspected. Vasquez catheter is in place. Extremities: He has no edema to the lower extremities. None to the upper. Neurological: He does not follow commands unless the daughter does repeat them multiple times at the bedside and then he still does not follow all of them. Integumentary: Warm and dry. Three areas noted that are open blisters on the left hip. ASSESSMENT AND PLAN: 1. Acute kidney injury on chronic kidney disease. Patient appears to have a baseline creatinine of 2.9 in the past year. Creatinine today is 3.9 with an elevated BUN. He has a Vasquez catheter with adequate urine output. Urine electrolytes are pending. We have a renal ultrasound that is currently pending. 2. Electrolytes and acid-base balance. Patient has a sodium of 150. He has not been eating or drinking in the last several days. May need to start an IV of D5W for a small bolus of 500 mL. Encourage p.o. intake. 3. Acid-base balance. This is acceptable. 4. Anemia. This is low but stable. 5. Encephalopathy. Patient has underlying dementia and Alzheimer's. This is followed by the primary care. Negative CT scan for acute disease. History of CVA. 6. Elevated troponins. Cardiology has been consulted. 7. Severe constipation. GI has been consulted. Followed by primary care. I would like to thank you for allowing us to follow with this patient. Dictated by FREDERICK Diaz for Stephen Schwartz MD Face to face encounter, data reviewed, discussed with Michael Abraham on 01/31/19. I agree with the above assessment and plan of care. cc: FREDERICK Diaz MD [facility]
--- NOTE | 2019-01-31 16:26 | GASTROENTEROLOGY PROGRESS NOTE ---
DATE: 01/31/2019 ATTENDING PHYSICIAN: Dr. Jaeger. PRIMARY CARE PHYSICIAN: Dr. Danielle Rico. SUBJECTIVE: The patient is resting in bed. His daughter is present at the bedside. Patient is beginning to move his bowels with lactulose. His ammonia has also come down. The patient was awakened and not currently sleeping. His abdominal x-ray showed evidence of improved constipation. The possibility of ileus cannot be excluded. There was extensive calcification of the aorta and iliac artery seen. PHYSICAL EXAMINATION: Vital Signs: Temperature of 97.6 degrees, pulse rate of 86, respiratory rate of 16, blood pressure 147/67, saturating 100% on room air. Body weight 155 pounds, 5 ounces. BMI 21.7 kg/m2. General Appearance: Thinly built, lying in bed, in no acute distress. HEENT: Mild pallor. No icterus. Neck: Supple. Abdomen: Soft, nondistended. No guarding. Extremities: No cyanosis or clubbing. Neurological: He is currently sleeping. LABS: Hemoglobin and hematocrit are 10.4 and 33.5, white count of 8.07, platelet count of 221,000. Sodium 150, potassium 5, chloride 111, bicarb 20, anion of 18, BUN of 71, creatinine 3.9, glucose 107, calcium is 8.9. Phosphorus 5.4, ammonia 48. Troponin is 0.399. Albumin of 3.6. Abdominal x-ray as described in the HPI. Chest x-ray, nasogastric tube in good position in the stomach. IMPRESSION AND PLAN: 1. Elevated ammonia, which has normalized. The patient does not have any history of liver disease. We will check acute hepatitis panel. We will follow up on the abdominal ultrasound. We will continue lactulose which will help with constipation as well as lowering ammonia. 2. Acute kidney injury. The patient does have chronic kidney disease. This is being monitored by the primary care team. Dr. Schwartz has been consulted. 3. Coronary artery disease and aortic stenosis. Cardiology is going to see the patient. They will order an echocardiogram. 4. Congestive heart failure. His proBNP is elevated. He was given a dose of Lasix. His sodium has gone up, likely because of intravascular depletion. This will be addressed by the primary care team to adjust his fluid status. 5. Constipation. We will continue lactulose which has helped his bowels. We will continue on lactulose to achieve 2 to 3 bowel movements in 24 hours and then hold the next dose if the patient is having diarrhea. 6. Alzheimer's dementia. Aware. 7. Gastrointestinal prophylaxis, proton pump inhibitors. 8. History of coronary artery disease, on aspirin and Plavix. We need to watch for bleeding. 9. Anemia. Continue to watch for now and transfuse as needed. 10. Gastrointestinal prophylaxis with Nexium once daily. 11. Bowel regimen with lactulose. 12. The above plan was discussed with the patient and family. All questions were answered. Please call us with any further questions. cc: MD Danielle Dumont MD
[2019-01-31] MEDS: SODIUM CHLORIDE 0.9% INJ SCH (18:02)
[2019-01-31] MEDS: NEXIUM IV SCH (18:02)
--- NOTE | 2019-01-31 18:29 | Diag Imaging Result Doc PS360 ---
EXAM: US ABDOMEN-COMPLETE INDICATION: assess liver and kidneys COMPARISON: 01/30/2019 FINDINGS: Note that this study is severely limited due to excess bowel gas and inability of the patient to fully cooperate with the exam. The gallbladder appears normal with no stones, wall thickening, or pericholecystic fluid. The common bile duct is normal in diameter. Sonographic Junior's sign was reported to be negative. The liver is partially obscured. The visualized portion is unremarkable. Portal venous flow is hepatopetal. The pancreas is obscured. The aorta is obscured. The IVC is unremarkable. The spleen is obscured. The left kidney is obscured. The right kidney is largely obscured. There are a few small right renal cysts identified, however. IMPRESSION: 1.Severely limited study due to the issues stated above. 2.A few small right renal cysts noted. Electronically signed by Samson Altamirano 01/31/2019 6:27 PM
[2019-01-31] MEDS: HEPARIN SUBQ SCH (22:41)
[2019-01-31] MEDS: NAMENDA PO SCH (22:41)
[2019-02-01] MEDS ORDERED: CALMOSEPTINE OINTMENT TOP PRN (02:23)
[2019-02-01] MEDS: LACTULOSE PO SCH ×3 (05:19→20:01)
--- NOTE | 2019-02-01 07:03 | EKG Report ---
Test Performed on : 02/01/2019 06:55:13 AM Test Reason : CAD Blood Pressure : / mmHG Vent. Rate : 077 BPM Atrial Rate : 077 BPM P-R Int : 190 ms QRS Dur : 098 ms QT Int : 404 ms P-R-T Axes : 033 -11 075 degrees QTc Int : 457 ms Sinus rhythm. with premature atrial complexes. with aberrant conduction. Otherwise normal ECG When compared with ECG of 31-JAN-2019 06:56, (Unconfirmed) aberrant conduction. is now present T wave inversion no longer evident in Anterior leads Confirmed by Poncho Almonte MD ([id number]) on 02/02/2019 9:00:36 AM
[2019-02-01 07:09] LABS: CALCIUM 7.5 mg/dL (8.8-10.2); CREATININE 4.1 mg/dL (0.7-1.2); PHOSPHORUS 5.1 mg/dL (2.7-4.5); POTASSIUM 4.4 mmol/L (3.5-5.1)
[2019-02-01 08:02] LABS: HEMATOCRIT 27.2 % (42.0-52.0); HEMOGLOBIN 8.5 g/dL (14.0-18.0); MCH 30.9 PG (27-31); MCHC 31.3 g/dL (33-37); MCV 98.9 FL (81-99); MPV 9.4 FL (7.4-10.4); RBC 2.75 XMIL (4.7-6.1); WBC 6.89 X1000 (4.8-10.8)
[2019-02-01] MEDS ORDERED: SEROQUEL PO SCH (09:00)
[2019-02-01] MEDS ORDERED: ASPIRIN EC PO SCH (09:00)
[2019-02-01] MEDS: PLAVIX PO SCH (10:20)
[2019-02-01] MEDS: COREG PO SCH ×2 (10:20→20:00)
[2019-02-01] MEDS: NAMENDA PO SCH ×2 (10:20→20:00)
[2019-02-01] MEDS: FLOMAX PO SCH (10:20)
[2019-02-01] MEDS: APRESOLINE PO SCH ×3 (10:20→17:41)
[2019-02-01] MEDS: VITAMIN B-12 PO SCH (10:20)
[2019-02-01] MEDS: HEPARIN SUBQ SCH ×2 (10:21→20:00)
[2019-02-01] MEDS: ASPIRIN EC PO SCH (10:21)
[2019-02-01] MEDS: NORVASC PO SCH (10:21)
--- NOTE | 2019-02-01 11:44 | PROVIDER PROGRESS NOTE ---
Progress Note S: No acute overnight events. Patient has had 3 nonbloody BMs this morning. His mental status has improved compared to admission per granddaughter at bedside. O: Last Vital Signs Temp 98.1 F 02/01/19 08:00 Pulse 78 02/01/19 08:00 Resp 18 02/01/19 08:00 BP 153/66 02/01/19 08:00 Pulse Ox 98 02/01/19 08:00 Height 5 ft 11 in Weight 162 lb 1.6 oz GEN: elderly, frail, awake, NAD HEENT: anicteric, MMM NECK: supple, no JVD PULM: CTAB, normal WOB CV: RRR, no murmurs ABD: soft NT/ND, NABS EXT: no cce NEURO: moving all extremities symmetrically; follows commands, no asterixis LABS: 01/31/19 02/01/19 02/01/19 05:47 06:35 06:35 WBC 6.89 Hgb 8.5 L D Plt Count 196 Sodium 142 Potassium 4.4 Chloride 108 H Carbon Dioxide 20 L Anion Gap 14 BUN 70 H Creatinine 4.1 H Calcium 7.5 L D Phosphorus 5.1 H Creatine Kinase 642 H CK-MB (CK-2) 14.51 H Albumin 3.0 L A/P: Mr. Julien Veloz is a 88 year old man with HTN, HLD, CAD s/p CABG, PAD s/p CEA, prior CVA, Coon's palsy, dementia, CKD, and h/o bladder cancer who presented with AMS found to have SARY on CKD, fecal impaction, elevated ammonia, and probable type 2 NSTEMI. I suspect his presentation is related to volume depletion given drop all his blood counts and noted hypernatremia. Unclear etiology of elevated ammonia as patient does not have history of liver disease nor has abnormal LFTs or stigmata of cirrhosis on exam. Reviewed med list; no culprit meds. U/S x2 has not been able to visualize the liver or spleen; however, there was no signs of ascites on imaging. His constipation and elevated ammonia has improved with lactulose. # AMS: improving; continue lactulose and titrate for 2-3 BMs daily, hold dose for >-=4 BMs in 24 hours; correct metabolic derangements # Constipation: resolved with lactulose # SARY on CKD: nephrology consulted; defer to mgmt to Dr. Schwartz # Anemia: drop from yesterday likely dilution; no overt bleeding; check iron studies, B12 and folate; he may benefit from outpatient diagnostic EGD/colonoscopy # FEN: advance diet as tolerated, ensure with meals # Dementia: aware; avoid sedating meds/narcotics Will follow with you. Please call with questions
--- NOTE | 2019-02-01 12:13 | Diag Imaging Result Doc PS360 ---
EXAM: CT ABDOMEN/PELVIS W/O CONTRAST 02/01/2019 HISTORY: Possible cirrhosis/h/o bladder cancer TECHNIQUE: This exam was performed using automated exposure control, adjustment of mA or kV according to patient size, and/or use of iterative reconstruction technique. COMMENT: The visualized portions of the lungs are not as well-expanded as on the previous study of 09/19/2014. No definite evidence of acute disease is present however. There is considerable beam hardening artifact from the patient's arms over the upper portion of the abdomen. There is a cyst in the lateral upper right hepatic lobe. This has not changed since the previous study. The spleen is not enlarged. The adrenal glands are not enlarged. The pancreas is unremarkable in appearance. There is diverticulosis in the colon. The small bowel is not distended. There is atherosclerotic calcification throughout the aorta. There is no evidence of appendicitis. There is stool in the rectum. There is no evidence of free fluid. There is a Vasquez catheter in the bladder. The bladder is not distended. There is no evidence of significant adenopathy. There are degenerative changes in the lumbar spine. There is apparent spinal stenosis at L4-5. No acute bony abnormality is present. IMPRESSION: No evidence of acute intra-abdominal or pelvic disease. Electronically signed by Som Lopez 02/01/2019 12:11 PM
[2019-02-01 13:29] LABS: HEPATITIS PROFILE ACUTE SEE COMMENTS
--- NOTE | 2019-02-01 14:12 | NEPHROLOGY PROGRESS NOTE ---
DATE: 02/01/2019 SUBJECTIVE: Mr. Veloz is resting quietly in bed. He is more awake and alert, more talkative today. No complaints. OBJECTIVE: Vital Signs: Temperature 98.7 degrees, blood pressure 145/77, heart rate 81, respirations 16. He is on room air. Last recorded saturation is 97%. He has had 900 in, 425 out to Vasquez catheter. LABORATORY DATA: Sodium 142, potassium 4.4, chloride 108, CO2 20, BUN 70, creatinine 4.1, glucose 95. His anion gap is 14, calcium 7.5, phosphorus 5.1, albumin is 3. His white count is 6.8, hemoglobin 8.5, hematocrit 27.2 with a platelet count of 196. The patient continues with elevated troponins. Last troponin yesterday evening was 0.414. CPK is starting to improve, down from 981 to 642 this a.m. PHYSICAL EXAMINATION: General: This is an 88-year-old male resting quietly in bed. He appears chronically ill though no acute distress. Skin: Warm and dry. HEENT: Normocephalic, atraumatic. Conjunctiva is pale pink. He has SALUD. Mucous membranes are dry. Neck: Supple trachea, midline. No evidence of JVD. Cardiovascular: He is regular rate and rhythm. He does have an atrial systolic murmur. Lungs: Clear to auscultation bilaterally. Equal excursion on O2. Abdomen: Soft, nontender. Positive bowel sounds. Genitourinary: Not inspected. Adequate urine out to Vasquez catheter. Extremities: Have no edema. No clubbing or cyanosis. Neurological: He is more awake and alert. ASSESSMENT AND PLAN: 1. Acute kidney injury on chronic kidney disease. Patient's baseline creatinine appears to be at 2.9 approximately one year ago. BUN and creatinine are elevated at this time of 70 and 4.1. The patient has adequate urine output. Likely this is his new baseline. Stage 5 with uremia. Patient is not a candidate for hemodialysis. Dr. Schwartz has spoken about this with his daughter at the bedside. 2. Electrolytes, acid-base balance, and anemia. These are all acceptable. 3. Encephalopathy. This has improved from yesterday. Followed by the primary care. 4. I would like to thank you for allowing us to follow with this patient. Dictated by FREDERICK Diaz for Stephen Schwartz MD Face to face encounter, data reviewed, discussed with Michael Abraham on 02/01/19. I agree with the above assessment and plan of care. cc: FREDERICK Diaz MD [facility]
--- NOTE | 2019-02-01 15:44 | PROGRESS NOTE ---
DATE: 02/01/2019 SUBJECTIVE: The patient is somewhat sleepy this morning. He has had multiple bowel movements since yesterday. OBJECTIVE: Vital Signs: Temperature 98.6 degrees, blood pressure 116/51, heart rate 80, respirations 16, O2 saturation 98% on room air. General: This is a chronically ill-appearing elderly male lying in bed in no acute distress. Head: Normocephalic, atraumatic. Heart: S1, S2 normal. Regular rate and rhythm. Lungs: Equal air entry bilaterally. No wheezing. No rales. No rhonchi. Abdomen: Positive bowel sounds. Soft, nontender, nondistended. Extremities: No edema, no cyanosis, no calf tenderness. Neurologic: The patient is lethargic today. He does move all 4 extremities when prompted. LABS: White blood cell count 6.8, hemoglobin 8.5, hematocrit 27, platelets 196,000. Sodium 142, potassium 4.4, chloride 108, CO2 20, BUN 70, creatinine 4.1, glucose 95, phosphorus 5.1. ASSESSMENT AND PLAN: 1. Metabolic encephalopathy. Unchanged. Will continue to monitor for improvement. 2. Acute kidney injury on chronic kidney disease. The patient's IV fluids have been adjusted. Further management as per Dr. Schwartz. 3. Elevated troponin. The patient denies having any chest pain or shortness of breath. Continue with conservative management as directed by the auto parts handler. 4. Anemia. Hemoglobin and hematocrit are a little lower today. The patient is on IV fluids. Will continue to monitor closely. 5. Dementia. Continue on Namenda. 6. Hypertension. Continue on the current antihypertensive regimen. 7. Severe aortic stenosis. Aware. 8. Coronary artery disease status post coronary artery bypass graft. Continue on the current cardiac medications. 9. Hyperammonemia. Improved. The patient's imaging does not show any evidence of cirrhosis. We will continue to follow closely. GI is following. 10. Constipation. Improved. Continue on the current laxative regimen. 11. Deep vein thrombosis prophylaxis. Continue on heparin. 12. Will consult Physical Therapy. cc: Laurie Jaeger MD [facility]
[2019-02-01] MEDS: NS 1,000 ML IV SCH ×2 (17:36→18:42)
[2019-02-01] MEDS: SODIUM CHLORIDE 0.9% INJ SCH (17:41)
[2019-02-01] MEDS: NEXIUM IV SCH (17:41)
[2019-02-01] MEDS ORDERED: TYLENOL PO ONE (19:44)
[2019-02-01] MEDS: DULCOLAX PR SCH (20:00)
[2019-02-02] MEDS: LACTULOSE PO SCH ×3 (05:43→20:47)
[2019-02-02] MEDS: NS 1,000 ML IV SCH (05:43)
[2019-02-02 06:40] LABS: HEMATOCRIT 25.6 % (42.0-52.0); MCH 31.1 PG (27-31); MCHC 31.3 g/dL (33-37); MCV 99.6 FL (81-99); MPV 9.6 FL (7.4-10.4); RBC 2.57 XMIL (4.7-6.1); RDW 11.9 % (11.5-14.5); WBC 6.2 X1000 (4.8-10.8)
--- NOTE | 2019-02-02 07:00 | EKG Report ---
Test Performed on : 02/02/2019 06:47:41 AM Test Reason : CAD Blood Pressure : / mmHG Vent. Rate : 084 BPM Atrial Rate : 084 BPM P-R Int : 204 ms QRS Dur : 104 ms QT Int : 418 ms P-R-T Axes : 028 021 063 degrees QTc Int : 493 ms Sinus rhythm. with occasional premature ventricular complexes. Prolonged QT Abnormal ECG When compared with ECG of 01-FEB-2019 06:55, (Unconfirmed) premature ventricular complexes. are now present aberrant conduction. is no longer present Confirmed by Poncho Almonte MD ([id number]) on 02/02/2019 9:11:19 AM
[2019-02-02 07:16] LABS: ALBUMIN 2.9 g/dL (3.5-5.0); CALCIUM 7.9 mg/dL (8.8-10.2); PHOSPHORUS 5.2 mg/dL (2.7-4.5)
[2019-02-02 07:27] LABS: FERRITIN 322 ng/mL (30-400)
[2019-02-02] MEDS: NAMENDA PO SCH ×2 (09:00→20:46)
[2019-02-02] MEDS: APRESOLINE PO SCH ×3 (09:00→18:49)
[2019-02-02] MEDS: PLAVIX PO SCH (10:05)
[2019-02-02] MEDS: ASPIRIN EC PO SCH (10:05)
[2019-02-02] MEDS: VITAMIN B-12 PO SCH (10:06)
[2019-02-02] MEDS: FLOMAX PO SCH (10:06)
[2019-02-02] MEDS: NORVASC PO SCH (10:06)
[2019-02-02] MEDS: HEPARIN SUBQ SCH ×2 (10:06→20:47)
[2019-02-02] MEDS: COREG PO SCH ×2 (10:06→20:46)
--- NOTE | 2019-02-02 10:51 | NEPHROLOGY PROGRESS NOTE ---
DATE: 02/02/2019 TIME SEEN: 0700. SUBJECTIVE: Mr. Veloz is resting quietly in bed. He is more awake and verbalizing more today. He is aware to person. OBJECTIVE: Vital Signs: Temperature 98.7 degrees, blood pressure 136/57, heart rate 81, respirations 14. He is currently on room air. He has had 2000 in, 675 out to Vasquez catheter. Laboratory Data: Sodium 140, potassium 4, chloride is 108, CO2 is 19, BUN is 65, his creatinine is at 4, glucose of 88, the patient has an anion gap of 13, calcium is 7.9, phosphorus is 5.2. The patient has an iron saturation of 24%, ferritin of 322, albumin of 2.9, B12 of 1421. White count 6.2, hemoglobin 8, hematocrit 25.6, with a platelet count of 192,000. Physical Examination: General: This is an 88-year-old, male. He is resting quietly in bed. His skin is warm and dry. HEENT: Normocephalic, atraumatic. Conjunctivae are pale. He has SALUD. Mucous membranes are dry. Neck: Supple. Trachea midline. No evidence of JVD. Cardiovascular: Regular rate and rhythm. He has an aortic systolic murmur. Lungs are clear to auscultation bilaterally. Equal excursion, on room air. Abdomen: Soft, nontender. Positive bowel sounds. Genitourinary: Not inspected. Vasquez catheter is in place. Extremities: Have no edema. No clubbing or cyanosis. Neurological: He is awake and alert to person. ASSESSMENT AND PLAN: 1. Acute kidney injury on chronic kidney disease. The patient's baseline creatinine may actually have worsened over the last year. Baseline creatinine a year ago was 2.9. It is holding steady at 3.9 to 4.1 over the last 48 hours. Adequate urine output is documented. 2. Electrolytes and acid-base balance. These are acceptable. 3. Anemia. This is low. The patient has iron deficiency anemia. This was ordered by the primary care. We will defer to them for ordering intravenous iron. 4. Encephalopathy. This is improving. PLAN: We will stop his intravenous fluid secondary to occasional congested cough during the night. We will advance his diet and remove his Vasquez catheter since he does not use one at home, to prevent possibility of infection. I would like to thank you for allowing us to follow with this patient. Dictated by FREDERICK Diaz for Stephen Schwartz MD Face to face encounter, data reviewed, discussed with Michael Abraham on 02/02/19. I agree with the above assessment and plan of care. cc: FREDERICK Diaz MD [facility]
--- NOTE | 2019-02-02 16:36 | PROGRESS NOTE ---
DATE: 02/02/2019 SUBJECTIVE: The patient is resting comfortably. He is more awake and alert today. OBJECTIVE: Vital Signs: Temperature 98.5 degrees, blood pressure 150/82, heart rate 85, respirations 16, O2 saturation is 98% on room air. General: This is a chronically ill-appearing, elderly male lying in bed, in no acute distress. Head: Normocephalic, atraumatic. Heart: S1, S2 normal. Regular rate and rhythm. Lungs: Equal air entry bilaterally. No wheezing. No rales. No rhonchi. Abdomen: Positive bowel sounds. Soft, nontender, nondistended. Extremities: No edema. No cyanosis. No calf tenderness. Neurologic: The patient is oriented to self. He is able to move all 4 extremities. LABS: White blood cell count 6.2, hemoglobin 8, hematocrit 25, platelets 192,000. Sodium 140, potassium 4, chloride 108, CO2 19, BUN 65, creatinine 4, glucose 88, calcium 7.9, phosphorus 5.2. CK 497. ASSESSMENT AND PLAN: 1. Metabolic encephalopathy. Slowly improving. 2. Acute kidney injury on chronic kidney disease. The patient's IV fluids have been discontinued. We will monitor the patient's renal function closely. Nephrology is following. 3. Elevated troponin. Stable. The patient denies having any chest pain. Continue on the current cardiac medications. 4. Iron deficiency anemia. We will start the patient on Venofer infusions. 5. Dementia. Continue on Namenda. 6. Severe aortic stenosis. Aware. 7. Coronary artery disease status post coronary artery bypass graft. Continue on the current cardiac medications. 8. Hyperammonemia. Resolved. 9. Constipation. Continue on the current laxative regimen. 10. Deep vein thrombosis prophylaxis. Continue on heparin. 11. Continue with physical therapy. Will consult high school social studies teacher for discharge planning. cc: MD SKY Loera
--- NOTE | 2019-02-02 16:43 | Diag Imaging Result Doc PS360 ---
CHEST-PORTABLE - 02/02/2019 INDICATION: dyspnea COMPARISON: 01/31/2019 FINDINGS: Stable sternotomy wires. Lung volumes are moderately low but improved from prior. No infiltrates or edema. Stable pulmonary vascular congestion. Heart size is top normal. IMPRESSION: Mild pulmonary vascular congestion. Electronically signed by Trever Armstrong 02/02/2019 4:41 PM
[2019-02-02] MEDS: VENOFER 200 MG in NS 150 ML IV SCH (18:49)
[2019-02-02] MEDS: NEXIUM IV SCH (18:49)
[2019-02-02] MEDS: SEROQUEL PO SCH (20:46)
[2019-02-02] MEDS: DULCOLAX PR SCH (20:47)
--- NOTE | 2019-02-03 01:09 | PROVIDER PROGRESS NOTE ---
Progress Note S: No acute overnight events. Daughter at bedside reports that patient's mental status is back to baseline. No N/V/F. Tolerating diet. +BMs. O: Last Vital Signs Temp 99.6 F 02/03/19 00:00 Pulse 83 02/03/19 00:00 Resp 18 02/03/19 00:00 BP 153/81 02/03/19 00:00 Pulse Ox 99 02/03/19 00:00 Height 5 ft 11 in Weight 167 lb 11.2 oz GEN: elderly, frail, awake, NAD HEENT: anicteric, MMM NECK: supple, no JVD PULM: CTAB, normal WOB CV: RRR, no murmurs ABD: soft NT/ND, NABS EXT: no cce NEURO: moving all extremities symmetrically; follows commands, no asterixis, agitated when examined LABS: 02/02/19 02/02/19 02/02/19 06:21 06:21 06:21 WBC 6.20 Hgb 8.0 L Plt Count 192 Sodium 140 Potassium 4.0 Chloride 108 H Carbon Dioxide 19 L Anion Gap 13 BUN 65 H Creatinine 4.0 H Phosphorus 5.2 H Iron 30 L TIBC 127 % Saturation 24 Unsat Iron Binding 97 L Ferritin 322 Creatine Kinase 497 H Albumin 2.9 L Vitamin B12 1421 H Folate >40.0 EXAM: CT ABDOMEN/PELVIS W/O CONTRAST 02/01/2019 HISTORY: Possible cirrhosis/h/o bladder cancer TECHNIQUE: This exam was performed using automated exposure control, adjustment of mA or kV according to patient size, and/or use of iterative reconstruction technique. COMMENT: The visualized portions of the lungs are not as well-expanded as on the previous study of 09/19/2014. No definite evidence of acute disease is present however. There is considerable beam hardening artifact from the patient's arms over the upper portion of the abdomen. There is a cyst in the lateral upper right hepatic lobe. This has not changed since the previous study. The spleen is not enlarged. The adrenal glands are not enlarged. The pancreas is unremarkable in appearance. There is diverticulosis in the colon. The small bowel is not distended. There is atherosclerotic calcification throughout the aorta. There is no evidence of appendicitis. There is stool in the rectum. There is no evidence of free fluid. There is a Vasquez catheter in the bladder. The bladder is not distended. There is no evidence of significant adenopathy. There are degenerative changes in the lumbar spine. There is apparent spinal stenosis at L4-5. No acute bony abnormality is present. IMPRESSION: No evidence of acute intra-abdominal or pelvic disease. A/P: Mr. Julien Veloz is a 88 year old man with HTN, HLD, CAD s/p CABG, PAD s/p CEA, prior CVA, Coon's palsy, dementia, CKD, and h/o bladder cancer who presented with AMS found to have SARY on CKD, fecal impaction, elevated ammonia, and probable type 2 NSTEMI. I suspect his presentation is related to volume depletion given drop all his blood counts and noted hypernatremia. He has no biochemical, imaging, or exam findings to suggest cirrhosis. He has anemia without evidence of iron deficiency. No overt bleeding. Mental status is back to baseline and constipation resolved. Daughter expressed frustration and concern for underlying liver disease as their mother passed last year from complications from ALCALA cirrhosis. # AMS: likely metabolic; resolved: decrease lactulose to once daily for goal of 1-2 BMs daily as patient does not have definitive diagnosis of liver disease # Elevated ammonia: unclear etiology; no obvious culprit medications # Constipation: resolved with lactulose # SARY on CKD: nephrology following; defer to mgmt to Dr. Schwartz # Anemia: hgb 8.0 without overt bleeding; daughter reports chronic anemia;may benefit from outpatient diagnostic EGD/colonoscopy, seen by Dr. Blanco in past # FEN: advance diet as tolerated, ensure with meals # Dementia: aware; avoid sedating meds/narcotics Will sign off. Please call with questions. Follow-up in GI clinic in 2-4 weeks to discuss possible EGD/colonoscopy
[2019-02-03] MEDS: LACTULOSE PO SCH ×3 (05:22→22:10)
[2019-02-03 07:52] LABS: HEMATOCRIT 24.8 % (42.0-52.0); HEMOGLOBIN 7.7 g/dL (14.0-18.0); MCH 30.8 PG (27-31); MCV 99.2 FL (81-99); MPV 8.7 FL (7.4-10.4); RBC 2.5 XMIL (4.7-6.1); RDW 11.8 % (11.5-14.5); WBC 5.79 X1000 (4.8-10.8)
[2019-02-03 08:22] LABS: ALBUMIN 2.9 g/dL (3.5-5.0); CALCIUM 7.9 mg/dL (8.8-10.2); CREATININE 3.7 mg/dL (0.7-1.2); PHOSPHORUS 4.7 mg/dL (2.7-4.5)
[2019-02-03] MEDS: VENOFER 200 MG in NS 150 ML IV SCH (09:26)
[2019-02-03] MEDS: HEPARIN SUBQ SCH ×2 (09:26→22:11)
[2019-02-03] MEDS: PLAVIX PO SCH (09:26)
[2019-02-03] MEDS: NAMENDA PO SCH ×2 (09:26→22:11)
[2019-02-03] MEDS: ASPIRIN EC PO SCH (09:27)
[2019-02-03] MEDS: APRESOLINE PO SCH ×3 (09:27→17:34)
[2019-02-03] MEDS: COREG PO SCH ×2 (09:27→22:11)
[2019-02-03] MEDS: VITAMIN B-12 PO SCH (09:27)
[2019-02-03] MEDS: FLOMAX PO SCH (09:30)
[2019-02-03] MEDS: NORVASC PO SCH (09:31)
--- NOTE | 2019-02-03 09:51 | NEPHROLOGY PROGRESS NOTE ---
DATE: 02/03/2019 SUBJECTIVE: Mr. Veloz is resting quietly in bed. His granddaughter is at his bedside. He has no complaints. He is awake. LABORATORY DATA: Sodium 142, potassium 4, chloride 111, CO2 of 19, BUN 58, creatinine is 3.7, glucose of 86, anion gap 12, calcium 7.9, phosphorus 4.7, albumin 2.9. White count 5.79, hemoglobin 7.7, hematocrit 24.8, with a platelet count of 186,000. OBJECTIVE: Vital Signs: Temperature 99.7 degrees, blood pressure 155/96, heart rate 87, respirations 18. He is on room air. Last recorded saturation 93%. He has had 0 recorded in. He has had 1000 out to Vasquez catheter and void. General: This is an 88-year-old, elderly, male, who is currently resting quietly in bed. He appears chronically ill, in no acute distress. Skin: Warm and dry. HEENT: Normocephalic, atraumatic. Conjunctiva is pale. He has SALUD. Mucous membranes are dry. Neck: Supple. Trachea midline. No evidence of JVD. Cardiovascular: Regular rate and rhythm. He has an aortic systolic murmur. Lungs: Clear to auscultation bilaterally. Equal excursion on room air. Abdomen: Soft, nontender. Positive bowel sounds. Genitourinary: Not inspected. The patient has been voiding. Extremities: No edema. No clubbing or cyanosis. Neurological: He is alert to person. ASSESSMENT: 1. Acute kidney injury on chronic kidney disease. The patient's baseline creatinine is 2.9. More than likely, this is chronic kidney disease that has worsened over a period of time. His BUN and creatinine are down to 58 and 3.7. He has adequate documented urine output. We had spoken to the family in regards that he is not a dialysis candidate. They understood. 2. Electrolytes and acid-base balance. These are acceptable. 3. Anemia. This is low, but stable. 4. Encephalopathy. This is improving. PLAN: Granddaughter has stated that the family would like to take the patient home. They understand that the patient is not a dialysis candidate. We have spoken with the primary care in regards with possible hospice referral. At this time, there is no further indications for us to continue to follow. Please call us if indicated during his continued hospital stay or family's change of plan for home care. I would like to thank you for allowing us to follow with this patient. Dictated by FREDERICK Diaz for Stephen Schwartz MD Face to face encounter, data reviewed, discussed with Michael Abraham on 02/03/19. I agree with the above assessment and plan of care. cc: FREDERICK Diaz MD [facility]
--- NOTE | 2019-02-03 16:43 | PROGRESS NOTE ---
DATE: 02/03/2019 SUBJECTIVE: The patient is sitting up in bed. He ate all of his breakfast this morning, and he is more awake and attentive. OBJECTIVE: Vital Signs: Temperature 98.1 degrees, blood pressure 162/74, heart rate 89, respirations 16, O2 saturation is 100% on room air. General: This is a chronically ill-appearing elderly male, lying in bed, in no acute distress. Heart: S1, S2 normal. Regular rate and rhythm. There is a systolic ejection murmur present. Lungs: Equal air entry bilaterally. No wheezing. No rales. No rhonchi. Abdomen: Positive bowel sounds. Soft, nontender, nondistended. Extremities: No edema, no cyanosis. No calf tenderness. Neurologic: The patient is oriented to person and place. He is able to move all 4 extremities. DIAGNOSTIC STUDIES: White blood cell count 5.7, hemoglobin 7.7, hematocrit 24, platelets 186,000. Sodium 142, potassium 4, chloride 111, CO2 of 19, BUN 58, creatinine 3.7, glucose 86, calcium 7.9, phosphorus 4.7, albumin 2.9. ASSESSMENT AND PLAN: 1. Metabolic encephalopathy. Improved. 2. Acute kidney injury on chronic kidney disease. Slightly improved today. We will continue to monitor. Nephrology is following. 3. Elevated troponin. Stable. Continue on the current cardiac medications. 4. Severe aortic stenosis. Aware. 5. Hyperammonemia. Resolved. 6. Iron deficiency anemia. The patient is receiving iron infusions. 7. Coronary artery disease status post coronary artery bypass graft. Continue on the current cardiac medications. 8. Dementia. Continue on Namenda. 9. Constipation. Continue on the scheduled laxative therapy. 10. Deep vein thrombosis prophylaxis. Continue on heparin. DISPOSITION: Hopefully, the patient may be able to be discharged home tomorrow if it is okay with all specialists. cc: Laurie Jaeger MD
[2019-02-03] MEDS: NEXIUM IV SCH (17:39)
[2019-02-03] MEDS: SODIUM CHLORIDE 0.9% INJ SCH (17:40)
[2019-02-03] MEDS: DULCOLAX PR SCH (22:11)
[2019-02-03] MEDS: SEROQUEL PO SCH (22:11)
[2019-02-04] MEDS: LACTULOSE PO SCH (05:04)
[2019-02-04 07:36] LABS: HEMATOCRIT 23.9 % (42.0-52.0); HEMOGLOBIN 7.4 g/dL (14.0-18.0); MCH 30.8 PG (27-31); MCV 99.6 FL (81-99); MPV 9.1 FL (7.4-10.4); RBC 2.4 XMIL (4.7-6.1); RDW 12.1 % (11.5-14.5); WBC 6.17 X1000 (4.8-10.8)
[2019-02-04 07:52] LABS: CALCIUM 8.1 mg/dL (8.8-10.2); CREATININE 3.4 mg/dL (0.7-1.2); POTASSIUM 3.8 mmol/L (3.5-5.1)
[2019-02-04] MEDS ORDERED: NS 500 ML IV ONE (09:49)
[2019-02-04] MEDS: VENOFER 200 MG in NS 150 ML IV SCH (10:23)
[2019-02-04] MEDS: NORVASC PO SCH (10:24)
[2019-02-04] MEDS: FLOMAX PO SCH (10:24)
[2019-02-04] MEDS: NAMENDA PO SCH (10:24)
[2019-02-04] MEDS: HEPARIN SUBQ SCH (10:24)
[2019-02-04] MEDS: COREG PO SCH (10:24)
[2019-02-04] MEDS: ASPIRIN EC PO SCH (10:24)
[2019-02-04] MEDS: PLAVIX PO SCH (10:24)
[2019-02-04] MEDS: VITAMIN B-12 PO SCH (10:25)
[2019-02-04] MEDS: APRESOLINE PO SCH (10:25)
[2019-02-04 14:38] VITALS: BP 143/84
--- NOTE | 2019-02-20 10:03 | DISCHARGE SUMMARY ---
ADMISSION DATE: 01/30/2019 DISCHARGE DATE: 02/04/2019 FINAL DISCHARGE DIAGNOSES: 1. Metabolic encephalopathy. 2. Acute kidney injury on chronic kidney disease. 3. Elevated troponin. 4. Severe aortic stenosis. 5. Hyperammonemia. 6. Iron-deficiency anemia. 7. Coronary artery disease, status post coronary artery bypass graft. 8. Dementia. 9. Constipation. CONSULTATIONS: 1. Nephrology consultation with Dr. Schwartz. 2. Cardiology consultation with Dr. Granados. 3. GI consultation with Dr. Morris. HOSPITAL COURSE: Mr. Veloz is an 88-year-old male with a history of multiple medical problems, who presented to the ER with a chief complaint of confusion as per the family. On admission, the patient was noted to have an ammonia level that was elevated. Also, the patient was in acute on chronic renal failure. The patient was admitted to the Hospitalist Service, and Nephrology was consulted, as well as GI. Initially, the patient was treated with IV fluids. After going over all of the patient's multiple comorbidities with the family, it was decided that the patient was not an adequate dialysis candidate. The patient did develop some volume overload, so the fluid was discontinued, and the patient's renal function was monitored closely. The renal function slowly improved over the course of the hospitalization without intervention. The patient was given lactulose, which resulted in improvement in the patient's mental status. The patient continued to improve clinically, and was ultimately cleared for discharge home with home health. DISCHARGE MEDICATIONS: 1. Lactulose 30 mL oral twice a day. 2. Hydralazine 50 mg oral 3 times a day. 3. Namenda 10 mg p.o. twice a day. 4. Norvasc 5 mg p.o. daily. 5. Folic acid 1 mg oral daily. 6. Seroquel 25 mg oral daily. 7. Aspirin 81 mg p.o. daily. 8. Plavix 75 mg p.o. daily. 9. Protonix 40 mg p.o. daily. 10. Lipitor 40 mg p.o. at bedtime. 11. Vitamin B12, 500 mcg oral daily. 12. Flomax 0.4 mg oral daily. 13. Exelon 1 patch daily. DISCHARGE DIET: Low-sodium diet. ACTIVITY: As tolerated. FOLLOWUP INSTRUCTIONS: The patient needs to follow up with his primary care physician in 1 to 2 weeks. cc: MD Danielle Loera MD
== END 2019-02-04 16:21 | disposition home health service (06) | DRG 388 ==
LOC: SUPCPDRO → ED 12:06 → 3S 16:23 → 1N 01-31 14:03
PROVIDERS: ATTEND Internal Medicine

== ENCOUNTER 2019-03-20 21:54 | Inpatient (IN) ==
[2019-03-20 22:35] LABS: ALLEN TEST YES; BE -5.5 mmoll (-3.0-3.0); BLOOD TYPE ARTERIAL; HCO3-(ACT) 20.6 mmoll (20.0-26.0); METHB 1.6 % (0.0-1.5); O2(CT) 11.9 mL/dL (15.0-23.0); O2HB 96.2 % (95.0-99.0); PCO2(98.6) 33 mmHg (35-45); PO2(98.6) 115 mmHg (60-100); SAMPLE BLOOD; SAO2 99.4 % (95.0-100.0); SRATE 14 BPM; THB 8.6 g/dL (11.5-17.4); TVOL 600 mL; pH(98.6) 7.37 (7.35-7.45)
[2019-03-20 22:36] LABS: MODALITY VENTILATOR
[2019-03-20 23:37] LABS: BASO# 0.02 X1000 (0.0-0.2); BASO% 0.2 % (0.0-0.8); EOS# 0.02 X1000 (0.0-0.7); EOS% 0.2 % (0.0-10.0); HEMATOCRIT 32.4 % (42.0-52.0); HEMOGLOBIN 9.1 g/dL (14.0-18.0); LYMPH# 1.05 X1000 (1.2-3.4); LYMPH% 13.1 % (20.5-51.1); MCH 30.2 PG (27-31); MCHC 28.1 g/dL (33-37); MCV 107.6 FL (81-99); MONO# 0.32 X1000 (0.11-0.59); MPV 10.7 FL (7.4-10.4); NEUT% 82.5 % (42.2-75.2); PLT 195 X1000 (130-400); RBC 3.01 XMIL (4.7-6.1); RDW 13.6 % (11.5-14.5); WBC 8.01 X1000 (4.8-10.8)
[2019-03-20] MEDS ORDERED: AMIDATE IV ONE (23:45)
[2019-03-20] MEDS: VERSED 100 MG in NS 80 ML IV SCH (23:45)
[2019-03-20] MEDS ORDERED: QUELICIN IV ONE (23:46)
[2019-03-20 23:53] LABS: ALB/GLOB RATIO 0.9; ALBUMIN 3.4 g/dL (3.5-5.0); CREATININE 6.3 mg/dL (0.7-1.2); POTASSIUM 7.2 mmol/L (3.5-5.1); TOTAL BILIRUBIN 0.41 mg/dL (0.20-1.00)
[2019-03-21] MEDS ORDERED: KAYEXALATE PR ONE (01:11)
[2019-03-21] MEDS ORDERED: CALCIUM GLUCONATE 1 GM in NS 50 ML IV ONE (01:11)
[2019-03-21] MEDS ORDERED: NEUT IV ONE (01:11)
[2019-03-21] MEDS ORDERED: D50W 500 ML IV SCH (01:15)
[2019-03-21] MEDS ORDERED: D50W SYRINGE IV ONE (01:30)
--- NOTE | 2019-03-21 01:44 | EKG Report ---
Test Performed on : 03/21/2019 01:38:05 AM Test Reason : respiratory distress Blood Pressure : / mmHG Vent. Rate : 097 BPM Atrial Rate : 097 BPM P-R Int : 164 ms QRS Dur : 088 ms QT Int : 330 ms P-R-T Axes : -14 002 080 degrees QTc Int : 419 ms Normal sinus rhythm. Nonspecific T wave abnormality Abnormal ECG When compared with ECG of 02-FEB-2019 06:47, premature ventricular complexes. are no longer present T wave inversion now evident in Anterior leads QT has shortened Unconfirmed Result
[2019-03-21] MEDS ORDERED: SODIUM BICARBONATE 8.4% IV ONE (02:00)
--- NOTE | 2019-03-21 02:04 | PROVIDER DOCUMENTATION ---
HPI-Respiratory General - General Chief Complaint: Unresponsive Stated Complaint: unresponsive Time Seen by Provider: 03/20/19 22:28 Source: EMS Allergies/Adverse Reactions: Patient Allergies Allergy/AdvReac Type Severity Reaction Status Date / Time No Known Allergies Allergy Verified 02/06/18 21:04 Home Medications: Home Medication List Medication Instructions Recorded Confirmed Last Taken Type Amlodipine [Norvasc] 5 mg PO DAILY 08/30/12 01/31/19 01/29/19 09:00 History Folic Acid 1 mg PO DAILY 08/30/12 01/31/19 01/29/19 09:00 History Memantine HCl [Namenda] 10 mg PO BID 08/30/12 01/31/19 01/29/19 21:00 History Quetiapine [Seroquel] 25 mg PO DAILY 08/30/12 01/31/19 01/29/19 21:00 History Aspirin EC 81 mg PO DAILY #0 tablet 09/20/14 01/31/19 01/29/19 09:00 Rx Clopidogrel Bisulfate [Plavix] 75 mg PO DAILY 02/02/15 01/31/19 01/29/19 09:00 History Cyanocobalamin [Vitamin B-12] 500 microgm PO DAILY 03/03/17 01/31/19 01/29/19 09:00 History Metoprolol Succinate E.r. [Toprol 25 mg PO DAILY 02/06/18 01/31/19 01/29/19 21:00 History Xl] Pantoprazole Sodium 40 mg PO DAILY@0700 02/06/18 01/31/19 01/29/19 09:00 History Atorvastatin Calcium 40 mg PO QHS 01/31/19 01/31/19 01/29/19 21:00 History Tamsulosin HCl 0.4 mg PO DAILY 01/31/19 01/31/19 01/29/19 09:00 History Rivastigmine 9.5 02/02/19 01/30/19 History Rivastigmine [Exelon 9.5MG/24Hrs] 1 ea TD DAILY 02/02/19 02/02/19 01/30/19 History Hydralazine [Apresoline] 50 mg PO TID #90 tab 02/04/19 Unknown Rx Lactulose 30 ml PO BID #64 oz 02/04/19 Unknown Rx - History of Present Illness-Resp Nature of Presenting Problem: 88y/o AAM with backgrounds dementia, HTN, CVA, MD s/p CABG, ESRD, no longer on dialysis. Patient was brought in by ambulance in respiratory distress and altered mental status. He was said to have been having swallowing difficulty 2 weeks prior and has been having lots of secretions with suctioning done by home health until he developed respiratory distress today. he was slightly arousable here in the ED but noted to be in respiratory distress Onset/Duration: reports: 1-3 hours ago Associated Symptoms: reports: shortness of breath Review of Systems - Adult - REVIEW OF SYSTEMS - ADULT ROS:: unobtainable per condition Constitutional: reports: no symptoms reported Past History - Adult - PAST MEDICAL HISTORY-ADULT Review of Records: reports: Nursing Assessment Review, Medications Reviewed, Social history reviewed & non-contributory. Major Childhood Illnesses: reports: history unknown Cardiovascular: reports: CAD, HTN, hyperlipidemia, MD Respiratory: reports: denies history Gastrointestinal: reports: denies history Obstetrical/Gynecological: reports: denies history Genitourinary: reports: cancer (bladder), other (renal cyst) Musculoskeletal: reports: denies history 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, CVA, dementia, other (Coon's palsy) Endocrine/Immune: reports: denies history Other Conditions: reports: denies history - PRIOR SURGERIES/PROCEDURES Surgical/Procedure History: reports: CABG (6 years ago), other (bladder) - IMMUNIZATION STATUS Childhood Immunizations: See Nurse Assessment Flu Vaccine: See Nurse Assessment - FAMILY HISTORY Family History: reviewed, not pertinent Physical Exam-General - PHYSICAL EXAM-ADULT Initial Vital Signs Reviewed: Yes - CONSTITUTIONAL General Appearance: moderate distress, other (minimally responsive) - HEAD, EARS, NOSE, MOUTH & THROAT HENMT: normocephalic/atraumatic - RESPIRATORY Respiratory: respiratory distress - CARDIOVASCULAR Cardiovascular: no edema, no murmur - GASTROINTESTINAL (ABDOMEN) Abdominal Exam: soft (examination was limited due to patient largely unresponsive state) Progress - PLAN OF CARE/RESULTS Progress/Plan/Lab Results: Vital Signs - 8 hr 03/20/19 21:59 03/20/19 22:00 03/20/19 22:04 Temperature Pulse Rate Respiratory Rate Blood Pressure 104/57 O2 Sat by Pulse Oximetry 100 94 L 91 L 03/20/19 22:10 03/20/19 22:15 03/20/19 22:17 Temperature 97.4 F L Pulse Rate 109 H Respiratory Rate 24 Blood Pressure 104/65 91/61 O2 Sat by Pulse Oximetry 94 L 100 100 03/20/19 22:30 03/20/19 22:45 03/20/19 23:45 Temperature Pulse Rate Respiratory Rate Blood Pressure 96/59 O2 Sat by Pulse Oximetry 100 97 100 03/21/19 00:00 03/21/19 00:15 03/21/19 00:30 Temperature Pulse Rate Respiratory Rate Blood Pressure O2 Sat by Pulse Oximetry 100 100 100 03/21/19 00:45 03/21/19 01:00 03/21/19 01:15 Temperature Pulse Rate Respiratory Rate Blood Pressure O2 Sat by Pulse Oximetry 100 100 100 03/21/19 01:25 03/21/19 01:30 Temperature Pulse Rate Respiratory Rate Blood Pressure 78/45 80/49 O2 Sat by Pulse Oximetry 100 100 Laboratory Results - last 24 hr 03/20/19 03/20/19 03/20/19 21:40 21:40 21:40 WBC RBC Hgb Hct MCV MCH MCHC RDW Std Deviation Plt Count MPV Immature Gran % (Auto) Neut % (Auto) Lymph % (Auto) Shelby % (Auto) Eos % (Auto) Baso % (Auto) Immature Gran # (Auto) Neut # (Auto) Lymph # (Auto) Shelby # (Auto) Eos # (Auto) Baso # (Auto) D-Dimer, Quantitative 5.97 H Specimen Type Sample Site pH pCO2 pO2 HCO3 Base Excess Oxyhemoglobin ABG O2 Sat (Calculated) ABG O2 Saturation ABG Carboxyhemoglobin ABG Methemoglobin Laci Test A-a O2 Difference Total Hemoglobin Lactate Blood Gas Modality Vent Mode Spontaneous Rate FiO2 % Tidal Volume PEEP Sodium 167 H* Potassium 7.2 H* Chloride 127 H Carbon Dioxide 16 L Anion Gap 24 BUN 128 H Creatinine 6.3 H Estimated GFR/1.73 m2 10 BUN/Creatinine Ratio 20 Glucose 139 H Calculated Osmolality 373 Calcium 9.0 Total Bilirubin 0.41 AST 10 ALT 6 L Alkaline Phosphatase 80 Troponin T 0.104 H Total Protein 7.0 Albumin 3.4 L Globulin 3.6 Albumin/Globulin Ratio 0.9 03/20/19 03/20/19 21:40 22:29 WBC 8.01 RBC 3.01 L Hgb 9.1 L Hct 32.4 L MCV 107.6 H MCH 30.2 MCHC 28.1 L RDW Std Deviation 13.6 Plt Count 195 MPV 10.7 H Immature Gran % (Auto) 0.0 Neut % (Auto) 82.5 H Lymph % (Auto) 13.1 L Shelby % (Auto) 4.0 Eos % (Auto) 0.2 Baso % (Auto) 0.2 Immature Gran # (Auto) 0.00 Neut # (Auto) 6.60 H Lymph # (Auto) 1.05 L Shelby # (Auto) 0.32 Eos # (Auto) 0.02 Baso # (Auto) 0.02 D-Dimer, Quantitative Specimen Type ARTERIAL Sample Site R RADIAL pH 7.37 pCO2 33 L pO2 115 H HCO3 20.6 Base Excess -5.5 L Oxyhemoglobin 96.2 ABG O2 Sat (Calculated) 11.9 L ABG O2 Saturation 99.4 ABG Carboxyhemoglobin 1.60 ABG Methemoglobin 1.6 H Laci Test YES A-a O2 Difference 557.0 Total Hemoglobin 8.6 L Lactate 3.30 H Blood Gas Modality VENTILATOR Vent Mode A/C Spontaneous Rate 14 FiO2 % 100.0 Tidal Volume 600 PEEP 5.0 Sodium Potassium Chloride Carbon Dioxide Anion Gap BUN Creatinine Estimated GFR/1.73 m2 BUN/Creatinine Ratio Glucose Calculated Osmolality Calcium Total Bilirubin AST ALT Alkaline Phosphatase Troponin T Total Protein Albumin Globulin Albumin/Globulin Ratio Orders Category Date Time Status CHEST-PORTABLE [RAD] Stat Exams 03/20/19 22:[address] HEAD/C-SPINE W/O CONTRAST [CT] Stat Exams 03/20/19 22:39 Taken ABG [RESP] Routine Lab 03/20/19 22:29 Completed CBC WITH ELECTRONIC DIFF [HEME] Stat Lab 03/20/19 21:40 Completed COMPREHENSIVE METABOLIC PANEL [CHEM] Stat Lab 03/20/19 21:40 Completed D-DIMER [COAG] Stat Lab 03/20/19 21:40 Completed TROPONIN T Stat Lab 03/20/19 21:40 Completed 0.9% Sodium Chloride Inj [Ns] 80 ml Med 03/20/19 22:45 Active Midazolam [Versed] 100 mg IV As Directed mls/hr Calcium Gluconate 1 gm Med 03/21/19 01:11 Discontinued 0.9% Sodium Chloride Inj [Ns] 50 ml IV NOW Dextrose 50% Syringe [D50w Syringe] Med 03/21/19 01:30 Discontinued 50 ml IV NOW ONE Etomidate [Amidate] Med 03/20/19 23:45 Discontinued 10 mg IV NOW ONE Sodium Bicarbonate 8.4% Med 03/21/19 02:00 Once 50 meq IV NOW ONE Sodium Polystyrene [Kayexalate] Med 03/21/19 01:11 Discontinued 30 gm WA NOW ONE Succinylcholine [Quelicin] Med 03/20/19 23:46 Discontinued 150 mg IV NOW ONE Ventilator Order Stat Oth 03/21/19 01:14 Active EKG [EKG] Stat Ther 03/20/19 22:29 Draft EKG [EKG] Stat Ther 03/21/19 01:11 Ordered Patient developed hyperkelemia and hypernatremia . also had elevated lactate, slightly elevated troponin, elevated D- dimer. He remained intubated. Call was placed for pt to be admitted and Dr Forde accepted the admisision Result Diagrams: 03/20/19 21:40 03/20/19 21:40 - CONSULTS/PCP/HOSPITALIST Notification #1 *Consult/PCP/Hospitalist*: 11: 29pm Time Discussed: 02:00 Consult Disposition: Admit (under Dr Forde after discussing came with him.) Departure - Departure Date of Disposition Decision: 03/21/19 Time of Disposition Decision: 02:23 DIAGNOSIS: Respiratory distress Acute on chronic renal failure Qualifiers: Acute renal failure type: unspecified Chronic kidney disease stage: stage 5, not on chronic dialysis Qualified Code(s): N17.9 - Acute kidney failure, unspecified; N18.5 - Chronic kidney disease, stage 5 Altered mental status Qualifiers: Altered mental status type: coma Coma depth: [place] coma 3-8 Coma timing: at arrival to emergency department Qualified Code(s): R40.2432 - Aileen coma scale score 3-8, at arrival to emergency department Disposition: ADMITTED INPATIENT 09 Certified Medical Emergency: Emergent Condition: Critical Referrals and Follow-Ups: Danielle Rico [Primary Care Provider] - - Critical Care Note This patient required my direct & personal management of CC.: Yes Attestation - Physician/ DHAVAL Attestation Patient care was provided by Advanced Practice Provider:: No The physician spent face to face time with patient:: Yes Advanced Practice Provider documentation review:: Supervising physician onsite and consulted in the evaluation and care of this patient. The physician did have a face to face encounter with the patient.
[2019-03-21] MEDS ORDERED: TYLENOL NG PRN (02:11)
[2019-03-21] MEDS ORDERED: VANCOMYCIN IV PER PHARMACY MISC SCH (02:15)
[2019-03-21] MEDS: ZOSYN 2.25 GM in NS 50 ML IV SCH ×3 (02:15→18:13)
[2019-03-21] MEDS ORDERED: TYLENOL LIQUID NG PRN (02:41)
[2019-03-21] MEDS ORDERED: ALBUTEROL 0.5% INH CONC FOR HYPERKALEMIA INH ONE (02:43)
[2019-03-21] MEDS ORDERED: NS 1,000 ML IV SCH (02:45)
[2019-03-21 03:05] LABS: BLOOD TYPE ARTERIAL; SAMPLE BLOOD
[2019-03-21 03:06] LABS: ALLEN TEST NO; BE -3.5 mmoll (-3.0-3.0); HCO3-(ACT) 22.2 mmoll (20.0-26.0); METHB 1.5 % (0.0-1.5); MODALITY VENTILATOR; O2(CT) 12.2 mL/dL (15.0-23.0); PCO2(98.6) 37 mmHg (35-45); PO2(98.6) 100 mmHg (60-100); SAO2 98.7 % (95.0-100.0); SRATE 14 BPM; THB 8.9 g/dL (11.5-17.4); TVOL 600 mL; pH(98.6) 7.37 (7.35-7.45)
[2019-03-21] MEDS: LOKELMA POWDER PACKET PO SCH ×3 (03:24→17:30)
[2019-03-21] MEDS: LEVOPHED 8 MG in D5 1/2 NS 250 ML IV SCH (05:00)
[2019-03-21 05:21] LABS: CALCIUM 8.9 mg/dL (8.8-10.2); CREATININE 6.8 mg/dL (0.7-1.2)
[2019-03-21 05:26] LABS: BLOOD TYPE ARTERIAL; SAMPLE BLOOD
[2019-03-21 05:27] LABS: ALLEN TEST YES; HCO3-(ACT) 22.5 mmoll (20.0-26.0); METHB 1.4 % (0.0-1.5); MODALITY VENTILATOR; O2(CT) 10.8 mL/dL (15.0-23.0); O2HB 92.8 % (95.0-99.0); PCO2(98.6) 38 mmHg (35-45); PO2(98.6) 65 mmHg (60-100); SAO2 95.5 % (95.0-100.0); SRATE 16 BPM; THB 8.2 g/dL (11.5-17.4); TVOL 600 mL; pH(98.6) 7.37 (7.35-7.45)
[2019-03-21] MEDS ORDERED: AMIDATE ONE (05:34)
[2019-03-21] MEDS ORDERED: QUELICIN ONE (05:35)
[2019-03-21] MEDS ORDERED: VANCOMYCIN 1 GM/NS 1 GM/250 ML IVPB IV ONE (06:15)
[2019-03-21] MEDS ORDERED: ZOFRAN IV PRN (06:16)
--- NOTE | 2019-03-21 06:19 | Diag Imaging Result Doc PS360 ---
CHEST-PORTABLE - 03/20/2019 INDICATION: respiratory distress, unresponsiveness COMPARISON: 02/02/2019 FINDINGS: There is an endotracheal tube in good position at T3-T4. Stable sternotomy wires. There is infiltrate at the right hilum and lower lobe, with loss of the right hemidiaphragm. There is significant gaseous distention of bowel throughout the upper abdomen. IMPRESSION: 1. Right hilar and lower lobe infiltrate. 2. Gas distended bowel diffusely, indeterminate. Electronically signed by Trever Armstrong 03/21/2019 6:16 AM
[2019-03-21] MEDS: PROTONIX PO SCH (07:00)
--- NOTE | 2019-03-21 07:21 | EKG Report ---
Test Performed on : 03/21/2019 07:12:20 AM Test Reason : Elevated Troponin Blood Pressure : / mmHG Vent. Rate : 095 BPM Atrial Rate : 095 BPM P-R Int : 162 ms QRS Dur : 094 ms QT Int : 360 ms P-R-T Axes : 018 -07 054 degrees QTc Int : 452 ms Normal sinus rhythm. T wave abnormality, consider anterior ischemia Abnormal ECG When compared with ECG of 21-MAR-2019 01:38, (Unconfirmed) No significant change was found Confirmed by Dewey COHN, Christian Andersen ([id number]) on 03/21/2019 8:27:30 AM
--- NOTE | 2019-03-21 07:23 | Diag Imaging Result Doc PS360 ---
EXAM: CT HEAD/C-SPINE W/O CONTRAST INDICATION: unresponsive TECHNIQUE: This exam was performed using automated exposure control, adjustment of mA or kV according to patient size, and/or use of iterative reconstruction technique. COMPARISON: CT head dated 01/30/2019 FINDINGS: Head: There is fairly advanced diffuse brain atrophy and white matter microangiopathy, stable. There is a stable chronic lacunar infarct involving the thalamus on the right and stable focal encephalomalacia involving the right occipital lobe. There is no definite acute infarct given the limited sensitivity of CT versus MRI. There is no discrete intracranial mass, mass effect, or intracranial hemorrhage. The surrounding soft tissues are essentially unremarkable. The calvaria is intact. C-spine: There is advanced multilevel degenerative disc disease as well as facet arthropathy. Degenerative arthropathy is causing minimal anterolisthesis of C7 on T1. There are varying degrees of central canal and neuroforaminal stenosis related to the degenerative arthropathy throughout the cervical spine. Otherwise, there is no discrete fracture, subluxation, or intrinsic osseous lesion. The patient is intubated. Surrounding soft tissues are essentially unremarkable, otherwise. IMPRESSION: 1.Extensive chronic changes that are stable. No evidence of acute intracranial pathology. 2.Advanced multilevel degenerative arthropathy but no evidence of fracture or other definite acute C-spine injury. Electronically signed by Samson Altamirano 03/21/2019 7:20 AM
[2019-03-21] MEDS ORDERED: VANCOMYCIN 1 GM/NS 0 GM/0 ML IVPB ONE (07:56)
--- NOTE | 2019-03-21 08:35 | Diag Imaging Result Doc PS360 ---
EXAM: CT THORAX/ABD/PELVIS W/O CON INDICATION: dilated bowel, sepsis, respiratory failure TECHNIQUE: This exam was performed using automated exposure control, adjustment of mA or kV according to patient size, and/or use of iterative reconstruction technique. COMPARISON: CT abdomen and pelvis dated 02/01/2019. No dedicated chest CT is available for comparison. FINDINGS: CHEST: There is minimal pulmonary emphysema. There are dense consolidations at both lung bases indicating pneumonia likely with components of atelectasis, worse on the right. There is milder patchy airspace consolidation involving the lower aspect of the right upper lobe and the upper aspect of the right middle lobe. There is little if any pleural fluid and no pneumothorax. There is subaneurysmal ectasia of the ascending aorta and extensive aortic atherosclerotic calcification as well as coronary artery calcification. No significant mediastinal lymphadenopathy is appreciated. An ET tube is in place with the tip in the lower trachea. There are CABG changes. ABDOMEN/PELVIS: The liver, gallbladder, spleen, pancreas, and adrenal glands are essentially unremarkable. There are a few small renal cysts bilaterally and there is a stable 2 cm hyperdense nodule at the anterior interpolar region of the right kidney that probably represents a blood filled cyst but is nonspecific on an unenhanced study. There is no hydronephrosis. The urinary bladder is largely nondistended and the wall is somewhat thickened, probably due to underdistention. The prostate is unremarkable. There is mild uncomplicated diverticulosis coli. There is no evidence of bowel wall thickening. There is a moderate amount of stool in the rectum, which is distended suggesting a possible small rectal fecal impaction. There is no obstructive bowel pattern. There is an NG tube with the tip in the lumen of the stomach in the expected position. The remainder of the GI tract is essentially unremarkable. There is advanced aortoiliac atherosclerotic calcification. There is extensive lumbar spondylosis. There is no evidence of acute osseous abnormality. IMPRESSION: 1.Bilateral multilobar pneumonia, worse on the right, as described. 2.Evidence of a small rectal fecal impaction. 3.Other incidental/nonacute findings detailed above. Electronically signed by Samson Altamirano 03/21/2019 8:33 AM
--- NOTE | 2019-03-21 08:44 | HISTORY AND PHYSICAL ---
PRIMARY CARE PROVIDER: Dr. Danielle Rico. DATE AND TIME: 03/21/2019 at 0300. CHIEF COMPLAINT: Unresponsive. HISTORY OF PRESENT ILLNESS: Mr. Veloz is an 88-year-old, male with a past medical history of dementia, hypertension, CVA, coronary artery disease, status post myocardial infarction and a coronary artery bypass graft, and end-stage renal disease, who has been deemed not a candidate for dialysis. The patient was recently admitted and discharged from our facility at the end of January 2019. His daughter and granddaughter were present at bedside. His daughter is a nurse. She states that she has quite a few brothers and sisters, and that they were recommended that the patient may need to be placed on hospice. Unfortunately, they were not all in agreement on and so the family members have been caring for him at home. They report that his mentation transiently improves and declines. She says some days, he will have good days where he knows who he is, where he is, can recognize family members, and is very talkative and seems like he feels good. Then she states that he has days where he is confused. His mood is not well and that he acts as though he does not feel good. They do state that over the past 2 weeks that his mentation has been steadily declining. They also report that he has been having trouble over the past couple of weeks with swallowing as well and have just recently changed his diet to a pureed diet and thickened liquids. He has been seeing a speech therapist. He does have a history of having a CVA in the past. She states that he has not been complaining of anything that she knows other than when they move him to clean him up, that he does holler out in pain sometimes. She reports that he has had a lot of respiratory secretions at home and they have been suctioning him as well. He has had a cough with productive sputum for which she states is clear yellowish in color. She states his appetite has declined as well over the last couple of weeks. She states he does have some chronic problems with constipation and they did increase his lactulose to 60 mL twice a day. She states even this was not helping him with bowel movements and that they were having to give enemas. She states the last 2 days, he did have a bowel movement without having to be given an enema. His daughter states that over the last couple days that he has been having wet diapers upon changing for which they have to change a couple times a day. They do not know of him having any recent fever, body aches, or chills. He does have a family member that stays with him at all times. His daughter, who is a nurse who is present at bedside, reports that her sister called her yesterday evening, that would be 03/20/2019, and informed her that Mr. Veloz was having a lot of trouble breathing, that he was working very hard to breathe, that he had wet lung sounds. She instructed her to suction him and even with suctioning with the Yankauer and nasopharyngeal deep suctioning, his respiratory status did not improve. She said that he started to have worsening lethargy. They did call an ambulance to bring him to the hospital. Upon arrival to the ER, the patient was in severe respiratory distress and was only responsive to painful stimuli. He was intubated upon arrival to the ER. Pertinent findings in the ER included pneumonia, acute respiratory failure, now on mechanical ventilation, and acute on chronic renal failure, now with a creatinine of 6.3, BUN of 128, and a GFR of 10. The patient did have a critical potassium of 7.2 and a sodium of 167. His troponin was elevated as well at 0.104, though EKG showed normal sinus rhythm with a nonspecific T-wave abnormality at a rate of 97 with a QTc of 419. They did perform a CT of the head and C-spine without contrast which did show no acute intracranial hemorrhage or process. There were small old infarcts at the right thalamus and right occipital lobe that were unchanged from previous. C-spine was negative for any acute cervical spine injury, though there was some multilevel moderate to severe degenerative disk disease in the cervical spine. Also, CT of thorax, abdomen, and pelvis was performed which did show pneumonia and constipation. The patient will be placed in the ICU for further treatment, evaluation, and close monitoring. REVIEW OF SYSTEMS: Unfortunately, a review of systems was unable to be performed with the patient at this time, though his daughter and granddaughter, who were present at bedside, were able to provide some information. Please see the above HPI. PAST MEDICAL HISTORY: This was obtained from the patient's family at bedside and his most recent history and physical from his admission in January of 2019. 1. Right thalamus infarct. 2. Carotid artery disease, status post endarterectomy. 3. Coronary artery disease, status post coronary artery bypass graft. 4. Generalized and focalized seizures. 5. Hypertension. 6. Hyperlipidemia. 7. Alzheimer's dementia. 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 9. Kidney stones. 10. Bladder cancer, seen by Dr. Romero, was diagnosed in 2015. 11. Chronic kidney disease. PAST SURGICAL HISTORY: 1. Right carotid endarterectomy. 2. Coronary artery bypass graft in 2008. SOCIAL HISTORY: The patient is currently living at home with family, who are helping take care of him. He is a former smoker. He quit smoking greater than 40 years ago. There is no known alcohol or illicit drug use. FAMILY HISTORY: Positive for his mother passing away secondary to complications from diabetes. His sister secondary to kidney failure. ALLERGIES: Patient has no known allergies. HOME MEDICATIONS: We are waiting for the patient's home medications to be updated and verified. Once done, we will continue appropriate medicines. DIAGNOSTIC DATA: White blood cell count is 8010, hemoglobin 9.1, hematocrit is 32.4, platelet count is 195,000. D-dimer 5.97. Sodium 167, potassium 7.2, chloride 127, serum bicarb is 16, BUN 28, creatinine 6.3, with GFR of 10, glucose 139, calcium 9. Liver function tests within normal limits. Troponin is 0.01. Arterial blood gases were obtained on the ventilator with 100% FiO2. PH 7.37, pCO2 of 33, PO2 of 115, HC03 is 20.6, base excess is -5.5, oxyhemoglobin is 96.2, O2 saturation is 99.4. EKG showed normal sinus rhythm with a nonspecific T-wave abnormality at a rate of 97 with a QTc of 419. CT of head and C-spine without contrast showed a CT of the head that had no acute intracranial hemorrhage or process. There were small old infarcts of the right thalamus and right occipital lobe that were unchanged. There was age-related cerebral volume loss. Bilateral white matter disease, likely ischemic, microvascular in nature. CT of C-spine showed no acute cervical spine fracture identified. There was multilevel moderate to severe degenerative disk disease of the cervical spine. CT of the chest, abdomen, and pelvis showed volume loss with consolidations involving the bilateral lower lobes, the right greater than the left, favoring atelectasis. There was superimposed pneumonia within the differential. Small patchy airspace disease within the posterior right upper lobe and within the posterior right middle lobe, favoring pneumonia. There was emphysema, small renal cyst, probable hemorrhagic cyst in the right kidney, and constipation. PHYSICAL EXAMINATION: VITAL SIGNS: Temperature at this moment is 102.1, heart rate 94, respirations 14, blood pressure is 115/63, oxygen saturation is 99% on mechanical ventilator. GENERAL: Mr. Veloz is an 88-year-old, male. He was resting on the ER stretcher with his eyes closed. At this time, he is only responsive to painful stimuli by sternal rub with some bilateral arm movement, though there was no purposeful movement or localization to pain. HEENT: Head is atraumatic, normocephalic. Pupils are equal, round, reactive to light, were 3 mm bilaterally and brisk. Oral mucosa was moist. Oropharynx was clear. The patient does have an endotracheal tube noted. NECK: Supple. Trachea is midline. There were no carotid bruits noted upon auscultation bilaterally. CARDIOVASCULAR: Patient has S1-S2 present. No murmurs, gallops, or rubs appreciated, with a regular rate and rhythm. PULMONARY: Patient has symmetrical chest expansion bilaterally. Lung sounds were clear to auscultation in bilateral full de souza. The ER did note that the patient had a wet lung sounds upon arrival to the ER, though this has improved. ABDOMEN: Soft. Does not appear to be distended. The patient did not have any facial grimacing, guarding, or localization of pain upon palpation. Bowel sounds were present in all 4 quadrants. They were hypoactive. EXTREMITIES: No cyanosis or edema noted. Radial and pedal pulses were 2+ bilaterally. The patient has shown movement in bilateral arms, though I have not seen him have movement in his legs during my assessment. INTEGUMENTARY: The patient's skin color is normal for his race, is dry and intact. NEUROLOGICAL: The patient at this time is only responsive to painful stimuli by sternal rub with some slight arm movement. He has no purposeful movement and no localization to pain. At this time, his neurological exam is limited due to his current condition and mentation. ASSESSMENT AND PLAN: 1. Acute hypoxic respiratory failure. We suspect this is likely secondary to the patient's pneumonia and possible aspiration. The patient's family have been stating that he has been having increasing difficulty with swallowing over the past couple of weeks. We have placed the patient with antibiotic coverage of Zosyn and vancomycin. This has been renally dosed. We will continue with aggressive pulmonary toilet. We have placed a consult with Dr. Montelongo with pulmonology for assistance with ventilator management as well. We will await his evaluation and further recommendations for management. 2. Pneumonia. We suspect this is likely aspiration pneumonia. We will continue treatment as mentioned above for #1. The patient is nothing per oral at this time. He does have a nasogastric tube placed also. 3. Possible sepsis. This may be likely secondary to pneumonia. The patient is borderline hypotensive. At this time, we will continue to monitor this closely, though we are providing some gentle fluid hydration. The patient does appear to be in acute renal failure at this time. Also, we will have to closely monitor his fluid volume status with strict intake and output. He has had fever which was 102.1 earlier. This has been treated as well. We will continue with antibiotics as mentioned above. Blood cultures and sputum culture have been ordered. We will continue to follow. 4. Encephalopathy. This is likely multifactorial, though is likely metabolic in nature. As previously mentioned, the patient's CT of the head was negative for any acute intracranial abnormality. 5. Acute on chronic kidney disease. The patient's family at bedside did report that he has recently been told he is in end-stage renal disease, though was not a candidate for dialysis. The patient at this time is having associated hyperkalemia as well. This has also been treated. We have placed a consult with Dr. Schwartz for his hyperkalemia as well as hyponatremia and acute renal failure. We will avoid nephrotoxic medications and renally dose medicines as necessary. We are providing some gentle fluid hydration. We will do strict intake and output, and continue to follow closely and await Dr. Schwartz's evaluation and further recommendations for management. 6. Hyperkalemia. As previously mentioned, this had been treated in the emergency room. Upon repeat, his potassium had improved from 7.2 to 6. We did order Lokelma to be administered. He has received one of three doses. We have ordered him to have every 4 hour BMPs to closely monitor his electrolytes. We will continue to follow. 7. Deep vein thrombosis prophylaxis will be provided with sequential compression devices. 8. Resuscitation status. Dr. Forde did speak with the patient's family about the patient's current condition and prognosis. At this time, the family has decided to make the patient a Do Not Resuscitate level 2. They want intubation and mechanical ventilation only. They do want us to continue with the current medical treatment that he is receiving as well. The patient has been placed in the intensive care unit for close monitoring. He will be on strict bedrest. We will do strict intake and output. We will do vital signs per intensive care unit protocol, every 4 hour fingerstick blood sugars. He will be on continuous cardiac telemetry and pulse oximetry. He is nothing per oral at this time except for medications via his nasogastric tube. We will do a series of cardiac enzymes. His troponin was slightly elevated, though we believe at this time this is likely secondary to his renal function. We are awaiting repeat cardiacs, PT, PTT, repeat BMP, and urinalysis results at this time. Further orders and recommendations pending hospital course, diagnostic studies, and physician evaluation. Dictated by FREDERICK Rabago for Bob Forde MD agree with the above. the following is my own face to face assessment. patient with SARY on CKD5, dialysis has been recommended but patient/family have refused. arrived unresponsive and had to be intubated. severe hyperkalemia and hypernatremia, likely from dehydration and kidney failure. likely aspiration pneumonia on imaging. also with background of chronic systolic CHF, liver dysfunction of unclear etiology, and severe aortic stenosis. overall prognosis quite poor. I had a long discussion with his family and they eventually decided to pursue all conservative measures but did make him DNR. patient intubated and sedated on exam. does move extremities nonpurposefully. pupils EERL. MTDD
[2019-03-21] MEDS ORDERED: ASPIRIN EC PO SCH (09:00)
[2019-03-21 09:24] LABS: URINE SOURCE CATH
[2019-03-21 09:30] LABS: BILIRUBIN URINE NEGATIVE (NEGATIVE); BLOOD URINE NEGATIVE (NEGATIVE); COLOR YELLOW; GLUCOSE URINE NEGATIVE (NEGATIVE); KETONE URINE NEGATIVE (NEGATIVE); LEUKOCYTES URINE SMALL (NEGATIVE); NITRITE URINE NEGATIVE (NEGATIVE); PROTEIN URINE 70 mg/dL (NEGATIVE); TURBIDITY URINE HAZY (CLEAR); UROBILINOGEN URINE NORMAL (NORMAL)
[2019-03-21 09:36] LABS: INR 1.12; PROTIME 14.5 Seconds (11.0-16.0)
[2019-03-21 09:37] LABS: PTT 31.3 Seconds (22.3-41.8)
[2019-03-21 09:51] LABS: CALCIUM 8.6 mg/dL (8.8-10.2); POTASSIUM 5.5 mmol/L (3.5-5.1)
[2019-03-21 10:19] LABS: UR EPITHELIAL CELLS >10 /HPF (<10); URINE BACTERIA NEGATIVE /HPF; URINE RBC <10 /HPF (<10)
[2019-03-21 10:32] LABS: URINE YEAST NONE SEEN
[2019-03-21] MEDS ORDERED: D5W 1,000 ML IV SCH ×3 (10:45→19:45)
[2019-03-21] MEDS ORDERED: NS 250 ML ONE (10:56)
[2019-03-21] MEDS: PLAVIX PO SCH (12:14)
[2019-03-21] MEDS: DULCOLAX PR SCH ×2 (12:14→18:13)
[2019-03-21] MEDS ORDERED: SODIUM BICARBONATE 8.4% 100 MEQ in D5W 1,000 ML IV ONE (12:15)
[2019-03-21] MEDS: ASPIRIN PO SCH (12:51)
--- NOTE | 2019-03-21 14:02 | PROGRESS NOTE ---
DATE: 03/21/2019 INTERVAL HISTORY: Mr. Veloz was admitted for acute hypoxic respiratory failure, multiple metabolic derangement and septic shock and was intubated because of unresponsiveness. No acute events overnight. His potassium was coming down. The patient's family is at bedside. The patient is intubated on midazolam drip, nonresponsive. VITALS: Temperature of 98.6 degrees, pulse of 91 respiratory rate he is intubated, blood pressure maintaining MAP more than 65 mmHg, requiring norepinephrine though on 40% FiO2. PHYSICAL EXAMINATION: Lethargic. HEENT: His pupils are 2 mm, not responding to light though he is on midazolam. Oral cavity is dry. He has endotracheal tube. Air entry decreased in right inframammary region with inspiratory crackles. Cardiovascular: S1, S2 normal. No murmur, rub, or gallop. Abdomen: Soft, nontender, tympanic to percussion. Active bowel sounds. No lower extremity edema. He has a urine catheter. LABS: He does not have leukocytosis. He does have macrocytic anemia, elevated D-dimer. He also has hypernatremia, hyperkalemia, hyperchloremia, elevated anion gap, metabolic acidosis, slightly elevated troponin. ASSESSMENT AND PLAN: 1. Septic shock and acute hypoxic respiratory failure due to right lower lobe pneumonia and multiple metabolic derangement, likely aspirational pneumonia. Continue intravenous vancomycin, intravenous Zosyn, Norepinephrine as well as mechanical ventilation as per pulmonology recommendation. Follow up blood culture and sputum culture results. 2. Acute kidney injury on chronic kidney disease stage 4 with elevated anion gap, low bicarbonate, hypernatremia, hyperkalemia, and hyperchloremia likely in the setting of septic shock. Considering end-stage renal disease, the patient will be at risk of volume overload. However, he is currently appearing volume depleted, so I will start him on D5 water intravenous fluid and follow up with frequent BMP. Close Vasquez catheter monitoring. Nephrology has been consulted. 3. History of coronary artery disease with coronary artery bypass graft and history of cerebrovascular accident. Continue dual anti-platelet medications and I will add other home medications as tolerated. 4. Other he does have history of chronic kidney disease stage 4, essential hypertension, dementia. 5. Continue pantoprazole for stress ulcer prophylaxis on mechanical ventilation. TIME SPENT: More than 30 minutes of critical care time was spent in taking this patient. I extensively counseled the patient's family about his critical condition, poor prognosis, that he may not be a candidate of hemodialysis at the moment. The code status is DNR level 2. In future family would want the patient to be taken home with hospice. Considering he is on dual anti- platelet, I would not start him on chemical deep venous thrombosis prophylaxis. cc: Jostin Reese MD MTDD
[2019-03-21 14:40] LABS: CALCIUM 8.8 mg/dL (8.8-10.2); CREATININE 6.3 mg/dL (0.7-1.2); POTASSIUM 5.7 mmol/L (3.5-5.1)
[2019-03-21] MEDS: HUMALOG SUBQ SCH ×2 (17:29→20:32)
--- NOTE | 2019-03-21 19:53 | NEPHROLOGY CONSULTATION ---
DATE: 03/21/2019 TIME SEEN: 10:00 a.m. REASON FOR ADMISSION: Respiratory failure, unresponsiveness. REASON FOR CONSULTATION: Assist with management, hyperkalemia, hyponatremia, acute on chronic kidney disease. CONSULTING PHYSICIAN: Dr. Forde. HISTORY OF PRESENT ILLNESS: This is an 88-year-old gentleman known to our service from a previous admission with end-stage renal disease. The patient has a history of dementia, history of CVA, hypertension, coronary artery disease, and history of status post myocardial infarction with CABG. He is not a dialysis candidate and after his discharge in January 2019, the patient was taken home and has been cared for by family members. There is a registered nurse in the family and the patient has been having around the clock care. Apparently, over the last several weeks prior to this admission, his oral intake has declined. His swallowing ability has become more difficult and over the last 2 days, they noticed a change in his mental status along with his respiratory status. On the day of admission, family called the daughter, who is a nurse, stating that his breathing was significantly different. They attempted deep suctioning without success. He was brought into the emergency room where imaging indicated that he had pneumonia. This was felt aspiration in nature. Initial creatinine was 6.3. He had a BUN of 128 with a GFR of 10. He did have a critical potassium of 7.2, and elevated sodium of 167. The patient was treated medically for his potassium. He has been placed on IV fluids. The patient was in respiratory distress in the emergency room and required intubation. When I see him, he is intubated and sedated. The daughter is at the bedside, and information is obtained from her and the chart. PAST MEDICAL HISTORY: As above. Also included: 1. Right thalamus infarct. 2. Carotid artery disease, status post endarterectomy. 3. Coronary artery disease, status post CABG. 4. Generalized focalized seizure. 5. Hypertension. 6. Hyperlipidemia. 7. Alzheimer's dementia. 8. History of Coon's palsy. 9. Kidney stones. 10. Bladder cancer, diagnosed in 2014. 11. Chronic kidney disease. SURGICAL HISTORY: 1. Right carotid endarterectomy. 2. CABG in 2008. ALLERGIES: No known drug allergies. HOME MEDICATIONS: Listed as: 1. Namenda. 2. Norvasc. 3. Folic acid. 4. Seroquel. 5. Aspirin. 6. Plavix. 7. Vitamin B12. 8. Pantoprazole. 9. Toprol. 10. Atorvastatin. 11. Tamsulosin. 12. Exelon. 13. Rivastigmine. 14. Lactulose. 15. Apresoline. FAMILY HISTORY: Diabetes, kidney failure. SOCIAL HISTORY: Currently at home, requiring around the clock care from family. No ETOH, tobacco, or illicit drug use. REVIEW OF SYSTEMS: As noted above. PHYSICAL EXAMINATION: Vital Signs: Temperature 102.1 degrees, pulse 112, respiratory rate 14, blood pressure 115/63. Intake and output have not been documented. General: This is a critically ill-appearing, elderly gentleman, currently sedated and mechanically intubated. HEENT: Normocephalic, atraumatic. His oral mucosa is dry. He is orally intubated. Neck: Supple. There is no JVD in a reclined position. Cardiovascular: Reveals a regular rate and rhythm without murmur. Pulmonary: Mechanically ventilated. Decreased breath sounds. Rales bilaterally. Abdomen: Soft. Hypoactive bowel sounds. : Vasquez catheter. Small amount of dark urine. Extremities: Wasted. No clubbing or cyanosis. Integumentary: Skin is dry, warm. Neurologic: Sedated. LAB DATA: Sodium 170, potassium 6.0, CO2 18, chloride 130, BUN 131, creatinine 6.8. ASSESSMENT AND PLAN: 1. Acute on chronic kidney disease. His baseline creatinine when he left the hospital in January was 3.4. The patient is not a candidate for chronic dialysis secondary to his current physical and cognitive chronic conditions. The patient's current acute kidney injury is likely secondary to fluid volume depletion and/or sepsis. We will continue with current treatment plan. At this time, would not had dialysis. 2. Hyperkalemia. Patient has been treated medically in the emergency room. He is also been given a dose of Lokelma. He has serial BNPs ordered q.4 hours. He has already had some modest improvement in potassium. No cardiac changes noted. 3. Hypernatremia. Fluids have been changed to D5 at 150 mL an hour. Again, continue serial BMPs. 4. Respiratory failure, followed by primary Pulmonology. 5. Intravenous access. Have given permission to the nurses for a peripherally inserted central catheter line to be placed as this is not a chronic dialysis candidate. Dictated by FREDERICK Padilla for Stephen Schwartz MD Face to face encounter, data reviewed, discussed with Cynthia Lizama on 03/21/19. I agree with the above assessment and plan of care. cc: Stephen Schwartz MD [facility]
--- NOTE | 2019-03-21 20:25 | PULMONOLOGY CONSULTATION ---
DATE: 03/21/2019 REQUESTING PHYSICIAN: Bbo Forde MD REASON FOR CONSULTATION: Intubation with respiratory failure. HISTORY OF PRESENT ILLNESS: Mr. Veloz is an 88-year-old black male with end-stage renal disease, dementia, severe aortic stenosis, prior strokes, and coronary artery disease, who was admitted to the hospital 01/30 until 02/04/2019 with metabolic encephalopathy with acute on chronic kidney disease. Echocardiogram at that time revealed severe aortic stenosis. The patient was deemed a non-dialysis candidate during that admission. Hospice discussions were held by nephrology, but the patient's family elected to take him home without hospice. The patient has been bed-bound since his discharge at the end of May. Over the last week, he has had some progressive decrease in mentation with inability to swallow secretions. P.o. intake has markedly declined. The patient concerned about the patient's family became concerned because he was struggling to breathe and he was brought to the emergency room where he was found to be unresponsive and in respiratory distress. He was electively intubated. CT scan of the brain was performed which revealed extensive/diffuse brain atrophy with white matter micro angiopathy. He has a stable chronic lacunar infarct in the thalamus with prior stroke and encephalomalacia in the right occipital lobe. He is currently hypotensive on Levophed. PAST MEDICAL HISTORY: 1. Dementia with progressive decline. He was ambulatory approximately 1 year ago, but had difficulty with memory. He has been bed-bound for the last 6 weeks. 2. Critical aortic stenosis. 3. Prior strokes as per above. 4. End-stage renal disease, not a candidate for hemodialysis. 5. Cardiomyopathy with ejection fraction of 40%. 6. Bladder cancer on BCG therapy. 7. Coronary artery disease status post bypass grafting. 8. Peripheral vascular disease, status post right carotid endarterectomy. 9. Osteoarthritis. 10. Protein-calorie malnutrition. 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 12. History of nephrolithiasis. SOCIAL HISTORY: The patient has been a nonsmoker for 40 years. No alcohol use listed. FAMILY HISTORY: Positive for diabetes and kidney disease. REVIEW OF SYSTEMS: Cannot be obtained. PHYSICAL EXAMINATION: General: Reveals an elderly black male on mechanical ventilation. He appears to be comfortable. He currently is on Levophed for hypotension. Blood pressure 103/56, heart rate 91, respiratory rate 11, oxygen saturation 100%. HEENT: Pupils are equal. Oropharynx appears dry. Neck: Supple. Chest: Reveals rhonchi bilaterally. Cardiac: S1, S2 with 4/6 systolic ejection murmur right upper sternal border. Abdomen: Soft. Extremities: Without edema. LABORATORIES: Arterial blood gas on mechanical ventilation of 40% reveals a pH 7.39, pCO2 of 38, PO2 of 65 with a lactate of 3.1. Sodium 164, potassium 5.5, chloride 125, bicarbonate 20, BUN 143, creatinine 7.0, glucose 170. White blood count 8.0, hemoglobin 9.1, platelet count 195,000. CT scan of the chest reveals multilobar pneumonia, right greater than left. CT scan of the abdomen and pelvis revealed renal cysts, thickened bladder wall, possible fecal impaction. IMPRESSION: An 88-year-old with multiple comorbidities including dementia, heart disease, kidney disease and bladder cancer who presents with 1. Acute hypoxemic respiratory failure. 2. Aspiration pneumonia. 3. Acute on chronic renal failure. 4. Hypotension, possibly related to the pneumonia or to dehydration. 5. Progressive decline in palliative performance scale. DISCUSSION: An 88-year-old with problems as outlined above. Family is aware that he is approaching the end of his life. Their current goal is to take him home if this is a feasible option. We will attempt to resuscitate him to the point that he could be successfully extubated and weaned from vasopressors. He may not survive to discharge to home. RECOMMENDATIONS: 1. Additional volume resuscitation. 2. Continue current antibiotic regimen. 3. Wean Levophed and mechanical ventilation as tolerated. TIME SPENT: Critical care management with the patient and family was 1 hour. cc: Preston Montelongo MD
[2019-03-21] MEDS: LIPITOR NG SCH (20:32)
[2019-03-21] MEDS ORDERED: HEPARIN SUBQ SCH (21:00)
[2019-03-21 21:16] LABS: CALCIUM 8.3 mg/dL (8.8-10.2); POTASSIUM 4.5 mmol/L (3.5-5.1)
[2019-03-22] MEDS: VERSED 100 MG in NS 80 ML IV SCH (01:07)
[2019-03-22] MEDS: LEVOPHED 8 MG in D5 1/2 NS 250 ML IV SCH ×2 (01:08→12:56)
[2019-03-22] MEDS: ZOSYN 2.25 GM in NS 50 ML IV SCH ×5 (01:11→23:45)
[2019-03-22 01:37] LABS: CALCIUM 8.4 mg/dL (8.8-10.2); CREATININE 6.4 mg/dL (0.7-1.2); POTASSIUM 4.7 mmol/L (3.5-5.1)
[2019-03-22] MEDS ORDERED: D5W 1,000 ML IV SCH (02:44)
[2019-03-22 04:18] LABS: BE 1.1 mmoll (-3.0-3.0); BLOOD TYPE ARTERIAL; HCO3-(ACT) 25.8 mmoll (20.0-26.0); METHB 1.2 % (0.0-1.5); O2(CT) 7.5 mL/dL (15.0-23.0); O2HB 95.7 % (95.0-99.0); PCO2(98.6) 42 mmHg (35-45); PO2(98.6) 86 mmHg (60-100); SAMPLE BLOOD; SAO2 98.8 % (95.0-100.0); THB 5.4 g/dL (11.5-17.4)
[2019-03-22 04:19] LABS: ALLEN TEST YES; SRATE 10 BPM; TVOL 600 mL
[2019-03-22 04:20] LABS: MODALITY VENTILATOR
[2019-03-22] MEDS: DULCOLAX PR SCH ×3 (04:23→18:07)
[2019-03-22] MEDS: PROTONIX PO SCH (06:25)
[2019-03-22] MEDS: HUMALOG SUBQ SCH ×4 (06:26→20:39)
--- NOTE | 2019-03-22 07:20 | Diag Imaging Result Doc PS360 ---
EXAM: CHEST-PORTABLE INDICATION: respiratory failure TECHNIQUE: One view COMPARISON: 03/20/2019 FINDINGS: The ET tube is in stable position. There has been interval placement of an NG tube. The tip projects below the diaphragm and is assumed to be in the lumen of the stomach in expected position. There has been interval placement of a right PICC line. The tip projects over the lower SVC in expected position. Right infrahilar consolidation is approximately stable. No new consolidation is identified. Cardiac silhouette is stable. IMPRESSION: Interval placement of right PICC line and NG tube. Essentially stable chest, otherwise. Electronically signed by Samson Altamirano 03/22/2019 7:18 AM
[2019-03-22 07:25] LABS: ALBUMIN 2.7 g/dL (3.5-5.0); CALCIUM 8.4 mg/dL (8.8-10.2); CREATININE 6.5 mg/dL (0.7-1.2); PHOSPHORUS 5.1 mg/dL (2.7-4.5); POTASSIUM 4.5 mmol/L (3.5-5.1)
[2019-03-22] MEDS: D5W 1,000 ML IV SCH ×3 (07:58→20:39)
[2019-03-22] MEDS: ASPIRIN PO SCH (08:38)
[2019-03-22] MEDS: PLAVIX PO SCH (08:38)
[2019-03-22 09:21] LABS: BASO# 0.01 X1000 (0.0-0.2); BASO% 0.1 % (0.0-0.8); EOS# 0.17 X1000 (0.0-0.7); EOS% 1.5 % (0.0-10.0); HEMATOCRIT 23.7 % (42.0-52.0); HEMOGLOBIN 6.7 g/dL (14.0-18.0); IMM GRAN# 0.03 X1000 (0.0-0.04); IMM GRAN% 0.3 % (0.0-0.5); LYMPH# 2.08 X1000 (1.2-3.4); LYMPH% 18.5 % (20.5-51.1); MCH 29.6 PG (27-31); MCHC 28.3 g/dL (33-37); MCV 104.9 FL (81-99); MONO# 0.54 X1000 (0.11-0.59); MONO% 4.8 % (1.7-9.3); MPV 10.5 FL (7.4-10.4); NEUT# 8.39 X1000 (1.4-6.5); NEUT% 74.8 % (42.2-75.2); PLT 151 X1000 (130-400); RBC 2.26 XMIL (4.7-6.1); RDW 13.6 % (11.5-14.5); WBC 11.22 X1000 (4.8-10.8)
--- NOTE | 2019-03-22 09:50 | PROGRESS NOTE ---
DATE: 03/22/2019 INTERVAL HISTORY: No acute events overnight. He continues to have norepinephrine requirement. His sputum is growing gram-positive cocci. Sodium continues to remain high despite intravenous fluid resuscitation. OBJECTIVE: Intubated. Not responding. Vitals: Afebrile. Temperature of 98.1 degrees, pulse 83, respiratory rate 10. He is not overbreathing on ventilator. MAP more than 65 mmHg, requiring 10 mcg of norepinephrine per minute. HEENT: Pupils are about 2 to 3 mm, briskly reacting to light bilaterally. Oral cavity has endotracheal tube. He has urine catheter. Right arm PICC line. Lungs: Air entry bilaterally equal. No wheeze or rhonchi. Crackles bilateral inframammary region with decreased air entry in right inframammary region. Cardiovascular: S1, S2 normal. Systolic murmur, crescendo decrescendo best heard over the right sternal border especially base of the heart. No rub or gallop. Abdomen: Soft and nontender. Extremities: No lower extremity edema. He has intact calf. He is flickering to painful stimuli all extremities. LABORATORY: No CBC today. ABG suggestive of pH of 7.4 and a pCO2 of 42, and PO2 of 86 on ventilator. He continues to have hypernatremia, hyperchloremia, elevated BUN and creatinine. His bicarbonate has increased to 22. MICROBIOLOGY: Culture is gram-positive cocci. Blood culture in lab. ASSESSMENT AND PLAN: 1. Septic shock and acute hypoxic respiratory failure due to right lower lobe gram-positive pneumonia and metabolic derangement, likely aspiration pneumonia. Continue intravenous vancomycin, intravenous Zosyn, norepinephrine to maintain more than 65 mmHg of MAP as well as mechanical ventilation as per Pulmonology recommendation. Follow up final culture results. 2. Acute kidney injury on chronic kidney disease stage 4 with elevated anion gap, low bicarbonate, hypernatremia, hyperkalemia, hyperchloremia in the setting of septic shock. Bicarbonate and potassium have improved. He still has hypernatremia and hyperchloremia likely due to septic shock and free water deficit. I will continue to give him D5 water as per Nephrology recommendation. He is not a candidate for long-term dialysis. 3. Continue close input and output monitoring through Vasquez catheter. 4. History of coronary artery disease with coronary artery bypass graft and history of cerebrovascular accident. Continue dual antiplatelet medication. 5. Others: He has history of CKD stage 4; essential hypertension, and dementia. I will continue pantoprazole for stress ulcer prophylaxis, and dual anti-platelet therapy so I will withhold any other chemical prophylaxis for DVT. 6. Disposition: The patient's condition is critical. TIME SPENT: More than 30 minutes of critical care time was spent taking care of this patient. I had updated a lot of family members yesterday about his clinical condition. His code status is DNR level 2. Plan of care discussed with the nursing team. cc: Jostin Reese MD
--- NOTE | 2019-03-22 13:38 | NEPHROLOGY PROGRESS NOTE ---
DATE: 03/22/2019 SUBJECTIVE: Patient remains sedated and mechanically ventilated. OBJECTIVE: Vital Signs: Temperature 98, pulse 81, respiratory rate 10, blood pressure 118/54. Intake 2.2 L, output 35 mL. PHYSICAL EXAMINATION: General: Acutely ill-appearing, elderly gentleman currently sedated and mechanically ventilated. HEENT: Normocephalic, atraumatic. His pupils are pinpoint. Oral mucosa is dry. He is orally intubated. Neck: Supple. There is no JVD. Cardiovascular: Irregular rhythm with PVCs. Pulmonary: He has decreased breath sounds but no wheeze or rhonchi. Abdomen: Hypoactive bowel sounds. : Vasquez catheter, small amount of dark yellow urine. Extremities: No clubbing, cyanosis, or edema. Integumentary: Skin warm and dry. LAB DATA: Sodium 165, potassium 4.7, chloride 124, CO2 22, BUN 137, creatinine 6.4. ASSESSMENT AND PLAN: 1. Tievy-kg-qswjcyx kidney disease. Renal function with no significant improvement. We have been resuscitating the patient with volume. Will continue his current treatment. Again, he is not a candidate for chronic dialysis. 2. Hyperkalemia, resolved. 3. Hypernatremia. He had D5 started yesterday but required sodium bicarbonate secondary to his acidosis. His sodium is really unchanged today. His D5 has been restarted, will increase that up to 150 mL/hour. 4. Respiratory failure followed by Primary and Pulmonology. Dictated by FREDERICK Padilla for Stephen Schwartz MD Face to face encounter, data reviewed, discussed with Cynthia Lizama on 03/22/19. I agree with the above assessment and plan of care. cc: Stephen Schwartz MD [facility]
[2019-03-22] MEDS: LIPITOR NG SCH (20:39)
[2019-03-22] MEDS: MORPHINE IV PRN (21:09)
--- NOTE | 2019-03-22 22:13 | PULMONOLOGY PROGRESS NOTE ---
DATE: 03/22/2019 SUBJECTIVE: The patient has been on Versed. This has been on hold, but he remains poorly responsive. OBJECTIVE: Vital Signs: Maximum temperature in the last 24 hours is 99.0 degrees, BP 103/55, heart rate 73, respiratory rate 7, oxygen saturation is 99%. HEENT: Pupils are equal. Oropharynx appears dry but clear. Neck: Supple Chest: Reveals occasional crackles bilaterally. Cardiac: S1, S2. Abdomen: Soft. Extremities: Extremities are cool to the touch. LABORATORY DATA: Chest x-ray reveals right perihilar infiltrate with blurring of the diaphragm on the left. Endotracheal tube in good position. PICC line in place. Arterial blood gas reveals a pH of 7.40, pCO2 of 42, PO2 of 86. Sodium 163, potassium 4.5, chloride 120, bicarbonate 20, BUN 135, creatinine 6.5, glucose 105. Microbiology reveals a gram-positive cocci. IMPRESSION: An 88-year-old with: 1. Dementia. 2. Acute hypoxemic respiratory failure. 3. Aspiration pneumonia. 4. Acute on chronic renal failure. 5. Ongoing hypotension/shock. PLAN: 1. Discontinue Versed and attempt to initiate a weaning process. 2. Continue D5W for hypernatremia. 3. Continue antibiotics for pneumonia. 4. Wean mechanical ventilation as tolerated. 5. Ongoing end of life discussions with the family. If he does not appear to be improving and approaching extubation, then a compassionate extubation should be discussed with the family. Time spent in critical care management: 30+ minutes cc: Preston Montelongo MD [facility]
[2019-03-23] MEDS: MORPHINE IV PRN (01:22)
[2019-03-23] MEDS: DULCOLAX PR SCH ×3 (01:31→17:30)
[2019-03-23] MEDS: D5W 1,000 ML IV SCH ×4 (02:10→20:37)
[2019-03-23] MEDS: LEVOPHED 8 MG in D5 1/2 NS 250 ML IV SCH ×2 (03:41→18:20)
[2019-03-23 04:21] LABS: ALLEN TEST YES; BE -2.8 mmoll (-3.0-3.0); BLOOD TYPE ARTERIAL; HCO3-(ACT) 22.8 mmoll (20.0-26.0); METHB 1.6 % (0.0-1.5); O2(CT) 8.6 mL/dL (15.0-23.0); O2HB 95.8 % (95.0-99.0); PCO2(98.6) 42 mmHg (35-45); PO2(98.6) 99 mmHg (60-100); SAMPLE BLOOD; SAO2 99.5 % (95.0-100.0); SRATE 7 BPM; THB 6.2 g/dL (11.5-17.4); TVOL 600 mL; pH(98.6) 7.34 (7.35-7.45)
[2019-03-23 04:23] LABS: MODALITY VENTILATOR
[2019-03-23 04:58] LABS: BASO# 0.01 X1000 (0.0-0.2); BASO% 0.1 % (0.0-0.8); EOS# 0.44 X1000 (0.0-0.7); EOS% 3.7 % (0.0-10.0); HEMATOCRIT 21.1 % (42.0-52.0); HEMOGLOBIN 6.1 g/dL (14.0-18.0); IMM GRAN# 0.05 X1000 (0.0-0.04); IMM GRAN% 0.4 % (0.0-0.5); LYMPH# 2.25 X1000 (1.2-3.4); LYMPH% 19.1 % (20.5-51.1); MCH 29.9 PG (27-31); MCHC 28.9 g/dL (33-37); MCV 103.4 FL (81-99); MONO# 0.51 X1000 (0.11-0.59); MONO% 4.3 % (1.7-9.3); MPV 11.2 FL (7.4-10.4); NEUT% 72.4 % (42.2-75.2); PLT 141 X1000 (130-400); RBC 2.04 XMIL (4.7-6.1); RDW 13.5 % (11.5-14.5); WBC 11.76 X1000 (4.8-10.8)
[2019-03-23 05:13] LABS: SODIUM 148 mmol/L (136-145)
[2019-03-23 05:14] LABS: AGAP 20; CALCIUM 7.6 mg/dL (8.8-10.2); CHLORIDE 109 mmol/L (98-107); COSMO 337; CREATININE 5.9 mg/dL (0.7-1.2); GLUCOSE 189 mg/dL (70-104); POTASSIUM 4.3 mmol/L (3.5-5.1); TCO2 19 mmol/L (25-35)
[2019-03-23] MEDS: ZOSYN 2.25 GM in NS 50 ML IV SCH (05:15)
[2019-03-23 05:35] LABS: BUN 127 mg/dL (8-22)
[2019-03-23] MEDS: HUMALOG SUBQ SCH ×5 (05:54→20:38)
[2019-03-23] MEDS: PROTONIX PO SCH (06:00)
--- NOTE | 2019-03-23 06:43 | Diag Imaging Result Doc PS360 ---
CHEST-PORTABLE - 03/23/2019 INDICATION: respiratory failure COMPARISON: 03/22/2019 FINDINGS: Support lines and tubes are stable. Lung volumes are much lower. There is slight worsening ill-defined infiltrate in the right lower lobe with loss of the right hemidiaphragm area stable central infiltrates or pulmonary edema. Stable small pleural effusions. IMPRESSION: Worsening from prior. Lower lung volumes with increasing right lower lobe infiltrate or atelectasis. Electronically signed by Trever Armstrong 03/23/2019 6:41 AM
[2019-03-23] MEDS ORDERED: NS 500 ML IV ONE (07:16)
--- NOTE | 2019-03-23 08:55 | PROGRESS NOTE ---
DATE: 03/23/2019 INTERVAL HISTORY: No acute events overnight. He continues to require pressors. He has not had any fever. He is on minimum ventilator setting. However, he has not been able to be weaned off so far. He does have drop in hemoglobin, without any signs of obvious bleeding. Currently, he is not responding. OBJECTIVE: Vital Signs: Temperature 97.4 degrees, pulse 81, respiratory rate 12, blood pressure 150/60, saturation 100% on mechanical ventilation. He has been maintaining MAP more than 65 on most occasions. However, whenever they try to decrease the norepinephrine, his MAP would drop. Input and output: His urine output is 600 mL now. General: Not in any acute distress. HEENT: Oral cavity has endotracheal tube and nasogastric tube. Lungs: Air entry bilaterally equal with decreased air entry and inspiratory crackles in inframammary region. Cardiovascular: S1, S2 normal. Systolic crescendo-decrescendo murmur best heard over right sternal border, especially at the base of the heart. No rub or gallop. Abdomen: Soft, nontender. Genitourinary: He has a urine catheter. Extremities: No lower extremity edema. Neurologic: His pupils are briskly reacting to light. He is flickering to painful stimuli to bilateral upper extremity, but not bilateral lower extremity today. LABORATORY DATA: Labs today are suggestive of decrease in hemoglobin to 6.1, WBC of 11,000, platelets of 141,000. His pH is 7.34. Hypernatremia, hyperchloremia. Carbon dioxide is low. He does have elevated BUN and creatinine. MICROBIOLOGY: Sputum culture growing Staphylococcus aureus, which is MRSA. IMAGING: Chest x-ray today suggest worsening from the prior lower lung volumes, with increasing right lower lobe infiltrate or atelectasis. ASSESSMENT AND PLAN: 1. Septic shock and acute hypoxic respiratory failure due to right lower lobe methicillin- resistant staphylococcus aureus pneumonia. Continue intravenous vancomycin. Stop Zosyn. Continue norepinephrine to maintain more than 65 mmHg of MAP. I will start him on midodrine to help wean the pressors off. Continue mechanical ventilation as per Pulmonology recommendation. 2. Acute kidney injury on chronic kidney disease stage 4 with elevated anion gap and low bicarbonate. Hyponatremia, hyperkalemia, hyperchloremia on admission in the setting of septic shock, now improving. Continue intravenous D5 water as per Nephrology recommendation, and close input and output monitoring with Vasquez catheter. 3. Normocytic anemia. He does have anemia of chronic kidney disease, and on top of that, critical illness-induced bone marrow suppression plus hemodilution is contributing to it. He does have significant drop in hemoglobin since admission. I will go ahead and give 1 unit of packed red blood cells. 4. Others. Continue dual antiplatelet for history of coronary artery disease, coronary artery bypass graft, cerebrovascular accident; pantoprazole for stress ulcer prophylaxis; will start tube feeds for nutrition. He does have history of chronic kidney disease stage 4, essential hypertension, and dementia. TIME SPENT: More than 30 minutes of critical care time were spent in taking care of this patient. I will again hold discussion with the family about long-term goals of care. Considering his old age and dementia, his prognosis is poor. cc: Jostin Reese MD
[2019-03-23] MEDS: PLAVIX PO SCH (09:50)
[2019-03-23] MEDS: PROAMATINE NG SCH ×3 (09:50→17:30)
[2019-03-23] MEDS: ASPIRIN PO SCH (09:50)
--- NOTE | 2019-03-23 13:59 | NEPHROLOGY PROGRESS NOTE ---
DATE: 03/23/2019 SUBJECTIVE: Patient remains mechanically ventilated. He is off the sedation, but poorly responsive. OBJECTIVE: Vital Signs: Temperature 98.3 degrees, respiratory rate 11, blood pressure 158. Intake 4.3 L; output 500. Generally: This is chronically ill-appearing gentleman. Currently mechanically ventilated and responsive. HEENT: Normocephalic, atraumatic. The oral mucosa is dry. He is orally intubated. Neck: Supple without JVD. Cardiovascular: Irregular rhythm with PVCs noted on the monitor. Pulmonary: Decreased breath sounds. No wheezes, rhonchi or rales. Mechanically ventilated. Abdomen: Hypoactive. : Vasquez catheter. He has light yellow urine. Extremities: No clubbing, cyanosis. Integumentary: Skin is warm and dry. LAB DATA: WBC of 11.7, hemoglobin 6.1. Sodium 148, potassium 4.3, CO2 19, creatinine 5.9, calcium 7.6. ASSESSMENT AND PLAN: 1. Acute on chronic kidney disease. Renal function with no significant change. Again, the patient is not a candidate for chronic dialysis. 2. Hyperkalemia, hypernatremia resolved. We will leave his D 5 on for 1 more day, but we will reduce the rate. It appears that we have reached the limit of free water deficit. 3. Respiratory failure. Followed by primary and Pulmonology. Dictated by FREDERICK Padilla for Stephen Schwartz MD Face to face encounter, data reviewed, discussed with Cynthia Lizama on 03/23/19. I agree with the above assessment and plan of care. cc: Stephen Schwartz MD [facility]
[2019-03-23] MEDS: LIPITOR NG SCH (20:37)
[2019-03-24] MEDS: DULCOLAX PR SCH ×3 (02:08→18:17)
[2019-03-24 04:44] LABS: ALLEN TEST YES; BE -4.7 mmoll (-3.0-3.0); BLOOD TYPE ARTERIAL; HCO3-(ACT) 21.2 mmoll (20.0-26.0); METHB 1.3 % (0.0-1.5); O2(CT) 17.3 mL/dL (15.0-23.0); O2HB 96.5 % (95.0-99.0); PCO2(98.6) 37 mmHg (35-45); PO2(98.6) 132 mmHg (60-100); SAMPLE BLOOD; SAO2 99.4 % (95.0-100.0); SRATE 7 BPM; THB 12.6 g/dL (11.5-17.4); TVOL 600 mL; pH(98.6) 7.35 (7.35-7.45)
[2019-03-24 04:45] LABS: MODALITY VENTILATOR
[2019-03-24] MEDS: HUMALOG SUBQ SCH ×4 (06:01→20:36)
[2019-03-24] MEDS: PROTONIX PO SCH (06:04)
[2019-03-24 06:51] LABS: BASO# 0.01 X1000 (0.0-0.2); BASO% 0.1 % (0.0-0.8); EOS# 0.42 X1000 (0.0-0.7); EOS% 4.2 % (0.0-10.0); HEMATOCRIT 22.7 % (42.0-52.0); HEMOGLOBIN 6.9 g/dL (14.0-18.0); IMM GRAN# 0.04 X1000 (0.0-0.04); IMM GRAN% 0.4 % (0.0-0.5); LYMPH# 1.81 X1000 (1.2-3.4); LYMPH% 18.1 % (20.5-51.1); MCH 29.9 PG (27-31); MCHC 30.4 g/dL (33-37); MCV 98.3 FL (81-99); MONO# 0.42 X1000 (0.11-0.59); MONO% 4.2 % (1.7-9.3); MPV 11.2 FL (7.4-10.4); NEUT# 7.31 X1000 (1.4-6.5); PLT 133 X1000 (130-400); RBC 2.31 XMIL (4.7-6.1); RDW 14.6 % (11.5-14.5); WBC 10.01 X1000 (4.8-10.8)
--- NOTE | 2019-03-24 07:07 | Diag Imaging Result Doc PS360 ---
EXAM: CHEST-PORTABLE 03/24/2019 HISTORY: respiratory failure TECHNIQUE: AP portable at 0515 COMMENT: There is an endotracheal tube with its tip approximately 1 cm above the yefri. There is an NG tube which passes into the stomach. There is ill-defined opacity in both lung bases which is similar in appearance to the previous study of 03/23/2019. IMPRESSION: Pulmonary edema and/or pneumonia. Electronically signed by Som Lopez 03/24/2019 7:05 AM
[2019-03-24 07:12] LABS: CREATININE 5.7 mg/dL (0.7-1.2); POTASSIUM 4.1 mmol/L (3.5-5.1)
[2019-03-24] MEDS: PLAVIX PO SCH (08:14)
[2019-03-24] MEDS: ASPIRIN PO SCH (08:14)
[2019-03-24] MEDS: PROAMATINE NG SCH ×3 (08:15→18:17)
--- NOTE | 2019-03-24 09:26 | PROGRESS NOTE ---
DATE: 03/24/2019 INTERVAL HISTORY: No acute events overnight. His pressor requirement was decreasing. He was breathing over the ventilator. His urine output has picked up. However, his chest x-ray looks worse. The patient is not responsive. Currently, temperature 97.4 degrees, pulse of 78, respiratory rate 12, MAP more than 65 mmHg on norepinephrine. He is breathing well on mechanical ventilator. He has about 900 mL of urine output yesterday, in the last 24 hours. PHYSICAL EXAMINATION: General: Not in any acute distress. HEENT: Oral cavity has endotracheal tube, nasogastric tube, Vasquez catheter. Lungs: He has decreased air entry, bilateral inframammary region, with inspiratory crackles. No wheeze, rhonchi. Cardiovascular: S1, S2 normal. Crescendo/decrescendo systolic murmur heard at right second intercostal space. No rub or gallop. Abdomen: Soft, nontender. No lower extremity edema. Neurologic: His pupils are briskly reacting. He is resisting eye opening, both sides. He is flickering to painful stimuli, bilateral upper and lower extremities. LABORATORY DATA: Labs suggestive of increase in hemoglobin after 1 unit of transfusion, normal platelet count. His ABG has normal pH. He does have continuously elevated BUN and creatinine with marginal improvement. MICROBIOLOGY: Stool occult blood test was negative. IMAGING: Chest x-ray suggests worsening pulmonary edema and effusion. ASSESSMENT AND PLAN: 1. Septic shock and acute hypoxic respiratory failure due to right lower lobe methicillin- resistant staphylococcus aureus pneumonia. Continue intravenous vancomycin, norepinephrine, and midodrine. Continue mechanical ventilation as per Pulmonology recommendation. 2. Acute kidney injury on chronic kidney disease stage 4 with elevated anion gap, low bicarbonate, hypernatremia, hyperchloremia, and hyperkalemia on presentation due to septic shock. Now, his electrolytes are improving. His kidney function remains marginal, though his urine output has increased. Continue Vasquez catheter. 3. Normocytic anemia due to anemia of chronic disease and hemodilution, improved after 1 unit of packed red blood cells. Fecal occult blood test was negative. 4. Others. Continue dual antiplatelet for history of coronary artery disease with coronary artery bypass graft and cerebrovascular accident; pantoprazole for stress ulcer prophylaxis; tube feeds for nutrition. He does have history of essential hypertension, dementia, and chronic kidney disease stage 4. TIME SPENT: More than 30 minutes of critical care time were spent in taking care of this patient. I will update the family about his critical condition. His code status is DO NOT RESUSCITATE level 2. Unfortunately, considering his old age, multiple medical illnesses, and poor functional status, he has extremely poor prognosis. My goal will be to present that to the family to have further goals of care. Palliative Care on board. cc: Jostin Reese MD
[2019-03-24] MEDS: D5W 1,000 ML IV SCH ×4 (09:28→23:42)
[2019-03-24 14:39] LABS: ALLEN TEST YES; BE -4.7 mmoll (-3.0-3.0); BLOOD TYPE ARTERIAL; HCO3-(ACT) 21.2 mmoll (20.0-26.0); METHB 2.1 % (0.0-1.5); MODALITY VENTILATOR; O2(CT) 9.6 mL/dL (15.0-23.0); O2HB 93.5 % (95.0-99.0); PCO2(98.6) 36 mmHg (35-45); PO2(98.6) 73 mmHg (60-100); SAMPLE BLOOD; SAO2 97.2 % (95.0-100.0); THB 7.2 g/dL (11.5-17.4); pH(98.6) 7.36 (7.35-7.45)
--- NOTE | 2019-03-24 17:33 | NEPHROLOGY PROGRESS NOTE ---
DATE: 03/24/2019 SUBJECTIVE: Patient remains mechanically ventilated. OBJECTIVE: Vital Signs: Temperature 97.4, pulse 80, respiratory rate 12, blood pressure 97/66. Intake 2.8 L, output 985 mL. General: This is a chronically ill-appearing elderly gentleman, currently mechanically ventilated. HEENT is normocephalic, atraumatic. Orally intubated. Neck is supple, he has some JV pulsation noted. Cardiovascular: Irregularly irregular rhythm with PVC. Pulmonary: Decreased breath sounds, no wheezes or rales. Remains mechanically ventilated. Abdomen: Positive bowel sounds. : Vasquez catheter with pale clear yellow urine. Extremities: No cyanosis, clubbing, or edema. Integumentary: Skin is warm and dry. LABORATORY DATA: WBC 10.0, hemoglobin 6.9. Sodium 144, potassium 4.1, CO2 of 20, creatinine of 5.7. ASSESSMENT: 1. Acute on chronic kidney disease. Renal function with mild improvement over the course of the hospitalization. The patient is not a candidate for dialysis and will continue with medical management. 2. Electrolyte imbalance, resolved. He continues with D5 at 75 mL an hour. Anticipate we will have to change this tomorrow back to normal saline. 3. Fluid volume. The patient appears euvolemic. His urine output is picking up at this time. Dictated by FREDERICK Padilla for Stephen Schwartz MD Face to face encounter, data reviewed, discussed with Cynthia Lizama on 03/24/19. I agree with the above assessment and plan of care. cc: Stephen Schwartz MD [facility]
[2019-03-24] MEDS: LIPITOR NG SCH (20:37)
[2019-03-25] MEDS: DULCOLAX PR SCH ×2 (03:03→10:14)
[2019-03-25] MEDS: D5W 1,000 ML IV SCH (04:33)
[2019-03-25 04:41] LABS: ALLEN TEST YES; BE -5.5 mmoll (-3.0-3.0); BLOOD TYPE ARTERIAL; HCO3-(ACT) 20.6 mmoll (20.0-26.0); METHB 0.1 % (0.0-1.5); MODALITY NRB; O2(CT) 10.2 mL/dL (15.0-23.0); O2HB 93.2 % (95.0-99.0); PCO2(98.6) 38 mmHg (35-45); PO2(98.6) 63 mmHg (60-100); SAMPLE BLOOD; SAO2 96.5 % (95.0-100.0); THB 7.7 g/dL (11.5-17.4); pH(98.6) 7.33 (7.35-7.45)
[2019-03-25 05:18] LABS: HEMATOCRIT 24.7 % (42.0-52.0); HEMOGLOBIN 7.5 g/dL (14.0-18.0); RBC 2.56 XMIL (4.7-6.1); WBC 8.44 X1000 (4.8-10.8)
[2019-03-25 05:19] LABS: BASO# 0.01 X1000 (0.0-0.2); BASO% 0.1 % (0.0-0.8); EOS# 0.32 X1000 (0.0-0.7); EOS% 3.8 % (0.0-10.0); IMM GRAN# 0.05 X1000 (0.0-0.04); IMM GRAN% 0.6 % (0.0-0.5); LYMPH# 1.81 X1000 (1.2-3.4); LYMPH% 21.4 % (20.5-51.1); MCH 29.3 PG (27-31); MCHC 30.4 g/dL (33-37); MCV 96.5 FL (81-99); MONO# 0.54 X1000 (0.11-0.59); MONO% 6.4 % (1.7-9.3); NEUT# 5.71 X1000 (1.4-6.5); NEUT% 67.7 % (42.2-75.2); PLT 142 X1000 (130-400); RDW 13.7 % (11.5-14.5)
[2019-03-25 05:57] LABS: CALCIUM 7.6 mg/dL (8.8-10.2); CREATININE 5.7 mg/dL (0.7-1.2)
[2019-03-25] MEDS: HUMALOG SUBQ SCH ×2 (06:36→11:04)
--- NOTE | 2019-03-25 07:06 | Diag Imaging Result Doc PS360 ---
EXAM: CHEST-PORTABLE 03/25/2019 HISTORY: respiratory failure TECHNIQUE: AP portable at 0532 COMMENT: There is an NG tube coiled in fundus the stomach. There is a PICC line on the right with its tip in the right atrium. The right lung is completely airless. This was not the case on 03/24/2019. The endotracheal tube has been removed. The left lung is not as well-expanded as on the previous study. IMPRESSION: Complete atelectasis of the right lung which may be due to mucous plugging in the right mainstem bronchus. Electronically signed by Som Lopez 03/25/2019 7:04 AM
[2019-03-25] MEDS: PROTONIX PO SCH (08:09)
[2019-03-25] MEDS: PLAVIX PO SCH (08:10)
[2019-03-25] MEDS: ASPIRIN PO SCH (08:10)
[2019-03-25] MEDS: PROAMATINE NG SCH (08:10)
[2019-03-25] MEDS ORDERED: NS 1,000 ML IV SCH (08:15)
[2019-03-25] MEDS ORDERED: PREVACID SOLUTAB NG SCH (08:30)
[2019-03-25] MEDS ORDERED: NS NEB INH SCH (09:30)
--- NOTE | 2019-03-25 10:15 | PROGRESS NOTE ---
DATE: 03/25/2019 INTERVAL HISTORY: He was extubated yesterday, which he tolerated well so far. However, at nighttime, his oxygen saturation started dropping and the chest x-ray had suggested right-sided mucous plugging. Deeper nasotracheal suctioning was performed. SUBJECTIVE: He is unresponsive. VITALS: Temperature 98.7 degrees, pulse 87, respiratory 22, blood pressure 120/79. He is saturating 86% on 100% non-rebreather. PHYSICAL EXAMINATION: Not responsive. He has a gurgling respiratory sound on non-rebreather mask. Tube feeds have been held. He has significantly decreased air entry on right hemithorax. Inspiratory crackles on the left hemithorax. S1, S2 normal. Systolic crescendo-decrescendo murmur right second intercostal space. No rub or gallop. Abdomen is soft, nontender. Extremities: No lower extremity edema. He has urine catheter. His pupils are briskly reacting. He resists eye opening. He also has tremors of bilateral upper extremities. Input and output suggests his urine output was 9.89 mL over 24 hours. ASSESSMENT AND PLAN: 1. Septic shock and acute hypoxic respiratory failure due to right lower lobe methicillin- resistant Staphylococcus aureus (MRSA) pneumonia. Continue intravenous vancomycin as per pharmacy dosing. He is off norepinephrine and mechanical ventilation on since March 24. Continue midodrine. 2. Right lung mucous plugging. Unfortunately, he is debilitated and physically deconditioned. He is at risk of developing recurrent aspiration as well as mucus plugging. I have a discussion with the nursing team about frequent suctioning as best as possible. 3. Acute kidney injury on chronic kidney disease stage 4 with significant hypernatremia, hyperkalemia and hyperchloremia on presentation, now improving. Change fluids to normal saline with close eye over to prevent hyponatremia. 4. Normocytic anemia due to anemia of chronic kidney disease and hemodilution status post 1 PRBC, now stable. 5. Others. Continue dual anti-platelet for history of coronary artery disease requiring CABG and CVA; pantoprazole for stress ulcer prophylaxis. I am holding tube feeds considering he had previously high residuals and he has mucous plugging, so he is at risk of aspiration again. He does have history of essential hypertension, dementia. DISPOSITION: More than 30 minutes of critical care time was spent in care of the patient. His code status is Do Not Resuscitate level 1. I had an extensive discussion with his family about his poor health and the fact that he is at risk of developing recurrent aspiration and mucus plugging, brought up about comfort measures only with the family and have further goals of care discussion. cc: Jostin Reese MD
[2019-03-25] MEDS: XOPENEX NEB INH SCH ×4 (11:51→22:50)
[2019-03-25] MEDS ORDERED: VANCOMYCIN 1 GM/NS 1 GM/250 ML IVPB IV SCH (12:00)
[2019-03-25] MEDS: ATROPINE 1 % OPHTH SOLN SL PRN ×2 (17:58→22:27)
[2019-03-25] MEDS: MORPHINE IV PRN ×2 (18:03→22:26)
[2019-03-25] MEDS ORDERED: MUCOMYST 20% INH SCH (19:30)
--- NOTE | 2019-03-25 19:35 | PROGRESS NOTE ---
DATE: 03/25/2019 I met with multiple family members off Mr. Veloz for goals of care discussion in an ICU physician consulting room. I explained to them about his critical condition. Though he was extubated yesterday, I explained to them that he is physically deconditioned and is at risk of not being able to maintain his airway patent. He also had a mucous plugging episode in the morning time which required nasotracheal suctioning. I explained to them that this may lead to further decline in his respiratory status. I also explained to him about his old age, dementia, poor functional status and need for pressor medication to keep his blood pressure healthy. After understanding it and knowing his own wishes, family decided to make him comfort measures only and transfer him out of ICU to a private room and start him on hospice care. The patient will be given IV morphine, IV Ativan as needed for comfort. I will also give him atropine drip to manage his secretions. cc: Jostin Reese MD MTDD
--- NOTE | 2019-03-25 22:35 | NEPHROLOGY PROGRESS NOTE ---
DATE: 03/25/2019 This is counseling only with the granddaughter. The patient remains unresponsive and now has mucous plugging and complete atelectasis of the right lung. Given his advanced dementia and other medical problems, he is not a candidate for renal replacement therapy. As such, I will not offer any further intervention. I agree with change in focus to comfort care only. I will sign off, but if I can be of further assistance, please do not hesitate to call. cc: Stephen Schwartz MD
[2019-03-26] MEDS: MORPHINE IV PRN ×5 (02:12→18:58)
[2019-03-26] MEDS: ATIVAN IV PRN ×5 (02:13→18:58)
[2019-03-26] MEDS: ATROPINE 1 % OPHTH SOLN SL PRN ×4 (02:17→14:29)
[2019-03-26] MEDS: XOPENEX NEB INH SCH ×6 (03:45→23:47)
[2019-03-26] MEDS ORDERED: VANCOMYCIN 1 GM/NS 1 GM/250 ML IVPB IV SCH (12:00)
--- NOTE | 2019-03-26 15:11 | PROGRESS NOTE ---
DATE: 03/26/2019 INTERVAL HISTORY: Mr. Veloz was made comfort measures only and was transferred to a private room. Did not have any acute overnight events. Has family members at bedside. VITAL SIGNS: Documented temperature of 99.4 degrees, pulse 109, respiratory 26. His documented blood pressure is 101/46. He is saturating 94% on 100% non-rebreather. PHYSICAL EXAMINATION: He does not appear uncomfortable. He does have some gurgling sound. HEENT: Pupils are briskly reacting bilaterally. Lungs: Air entry bilaterally equal. No wheeze or rhonchi. Inspiratory crackles, right infrascapular region. Cardiovascular: S1, S2 normal. Tachycardic. No murmur or gallop. Abdomen: Soft, nontender. He has NG tube and Vasquez catheter. Extremities: Mild bilateral lower extremity edema. I discussed with the nurse about taking the nasogastric tube out. LABS: No labs today. ASSESSMENT AND PLAN: 1. Septic shock and acute hypoxic respiratory failure. 2. Right lower lobe MRSA pneumonia. 3. Acute kidney injury on chronic kidney disease stage 4, not a candidate for long-term dialysis. 4. Normocytic anemia. 5. History of coronary artery disease and CABG and cerebrovascular accident in the past. 6. Poor functional status and at risk for recurrent aspiration pneumonia. PLAN: The patient is comfort measures only. His code status is do not resuscitate level 1. I will continue him on nebulization, intravenous morphine and lorazepam as needed and has atropine sublingually to manage his secretions. Hospice team is following and on Thursday decision will be made about GIP versus home hospice. cc: MD SKY Neff
[2019-03-27] MEDS: XOPENEX NEB INH SCH ×2 (04:05→08:22)
[2019-03-27] MEDS: MORPHINE IV PRN (08:18)
[2019-03-27] MEDS: ATIVAN IV PRN (08:21)
[2019-03-27 08:50] VITALS: BP 87/40
--- NOTE | 2019-03-27 14:43 | DISCHARGE SUMMARY ---
ADMISSION DATE: 03/21/2019 DISCHARGE DATE: 03/27/2019 Date of : March 27, 2019 Timing of : 9 hours 8 minutes. CAUSE OF : Septic shock due to pneumonia. CONTRIBUTING FACTOR: 1. Chronic kidney disease stage 4. 2. Dementia. HOSPITAL COURSE SUMMARY: Mr. Veloz is an 88 -year-old man with past medical history of chronic kidney disease stage 4, poor functional status, hypertension, CVA, dementia, who was admitted on 03/21/2019 with chief complaints of unresponsiveness. Apparently patient's mentation has been declining for 2 weeks and he has had trouble swallowing since last 2 weeks on pureed diet. He had a lot of respiratory secretions at home with productive cough and he had gradually worsening mentation. He was brought to the emergency room. In the emergency room, he was found to be in respiratory distress and was only responsive to painful stimuli, so he was intubated for airway protection and was transferred to ICU. In the hospital, he was treated for septic shock, acute hypoxic respiratory failure requiring mechanical ventilation, acute kidney injury on chronic kidney disease stage 4, multiple electrolyte abnormalities, anemia. Later on he his shock did improve to some extent and he was extubated. Looking at his poor functional status, multiple comorbidities and the risk off recurrent aspiration and pneumonia events and poor quality of life, family had decided to make him do not resuscitate level 1 and comfort measures only. The patient was on comfort measures only and then was being treated with intravenous morphine, intravenous Ativan as needed to address his pain, anxiety. On 03/27/2019, he . I went to the bedside and talked with the family members. Two nurses had already pronounced him. TIME SPENT: Less than 30 minutes were spent in discharging this patient. cc: Jostin Reese MD
== END 2019-03-27 09:08 | disposition expired | DRG 871 ==
LOC: SUPCPDRO → ED 21:54 → SUATTDRO 03-21 03:50 → ICU 03-21 03:50 → EDIPHOLD 03-21 04:15 → ICU 03-21 08:53 → 3N 03-25 16:23
PROVIDERS: ATTEND Internal Medicine